=== PATIENT | male | born 1980 | race Caucasian/White ===

== ENCOUNTER 2021-02-01 20:04 | Emergency (ER) | payer MEDICAID ==
[~2021-02-01] VITALS: Ht 157.5 cm; Wt 59.9 kg
[2021-02-01 20:05] VITALS: BP 114/58
--- NOTE | 2021-02-01 20:05 | NUR ---
BIBA TAKEN TO BED #7
[2021-02-01] MEDS ORDERED: NACL 0.9% 1,000 ML IV ONE (20:30)
--- NOTE | 2021-02-01 20:30 | NUR ---
40 YO/M BIBA FROM [facility] W C/O CONSTIPATION X4 DAYS AND LOSS OF APPETITE PER EMS. PATIENT PRESENT GCS 11, SPONTANEOUS, OBEDIENT, NON-VERBAL, PATIENT BREATHING EVEN AND UNLABORED, LUNG SOUNDS CLEAR, BOWEL SOUNDS PRESENT, ABDOMEN SOFT NON-TENDER. CONNECTED TO MONITOR W 114/58 BP, 109 HR, 97 O2, 17 RR. PATIENT WEARING A DIAPER WITH X1 BOWEL MOVEMENT FILLING DIAPER W SOFT AND BROWN STOOL. PATIENT LAYING IN BED LOCKED IN LOWEST POSTION, X2 SIDERAILS UP W SEIZURE PRECAUTIONS IN PLACE FOR PATIENT SAFETY. WILL CONTINUE TO MONITOR. MEDHX- CEREBRAL PALSY, EPILEPSY NKA
--- NOTE | 2021-02-01 20:30 | NUR ---
PROVIDED DRESSING CHANGE TO PATIENT PRESSURE ULCER TO BACK. PHOTOS TAKEN AND ATTACHED TO CHART.
[2021-02-01 21:03] LABS: BASOPHILS # (AUTO) 0.1 K/uL (0.00-0.22); BASOPHILS % (AUTO) 1.1 % (0.0-2.0); HEMATOCRIT 40.5 % (36-52); HEMOGLOBIN 12.5 g/dL (12.0-18.0); LYMPHOCYTES # (AUTO) 2.2 K/uL (2.0-11.5); MEAN CORPUSCULAR HEMOGLOBIN 22 pg (27-31); MEAN CORPUSCULAR HGB CONC 31 g/dL (33-37); MEAN CORPUSCULAR VOLUME 70.2 fL (80-94); MONOCYTES # (AUTO) 0.8 K/uL (0.8-1.0); MONOCYTES % (AUTO) 11.3 % (1.7-9.3); NEUTROPHILS # (AUTO) 4.2 K/uL (1.8-7.7); NEUTROPHILS % (AUTO) 57.6 % (42.2-75.2); PLATELET COUNT (AUTO) 581 K/uL (140-450); RED BLOOD CELL COUNT(AUTO) 5.77 MIL/uL (4.20-6.10); RED CELL DISTRIBUTION WIDTH 16.5 % (11.6-13.7); WHITE BLOOD COUNT (AUTO) 7.3 K/uL (4.8-10.8)
[2021-02-01 21:24] LABS: ALBUMIN 3.6 g/dL (3.4-5.0); ANION GAP 22.1 (8-16); CARBON DIOXIDE 22.2 mmol/L (21-32); CREATININE 1.3 mg/dL (0.6-1.3); POTASSIUM 4.3 mmol/L (3.5-5.1); TOTAL BILIRUBIN 0.7 mg/dL (0.0-1.0)
--- NOTE | 2021-02-01 22:30 | NUR ---
PATIENT LAYING IN BED AWAKE, BED LOCKED IN LOWEST POSTION, X2 SIDERAILS UP W SEIZURE PRECAUTIONS. BREATHING EVEN AND UNLABORED. NAD NOTED, WILL CONTINUE TO MONITOR.
--- NOTE | 2021-02-01 22:35 | NUR ---
CONTACTED SERGE DIANA FROM [facility] FOR PATIENT DISCHARGE. PER SERGE, WILL CALL BACK W UPDATE ON TRANSPORTATION STATUS FOR PATIENT SUPERVISOR VENEER.
--- NOTE | 2021-02-01 22:41 | NUR ---
S/W VENANCIO FROM [facility] WHO STATED THEY ARE UNABLE TO PROVIDE TRANSPORTATION FOR PICKUP UNTIL TOMORROW MORNING.
--- NOTE | 2021-02-02 00:22 | NUR ---
PATIENT LAYING IN BED L LATERAL POSITION W EYES CLOSED, X2 SIDERAILS UP FOR PATIENT SAFETY W SEIZURE PRECAUTIONS IN PLACE. BREATHING EVEN AND UNLABORED, CONNECTED TO MONITOR W VSS. NAD NOTED, WILL CONTINUE TO MONITOR.
--- NOTE | 2021-02-02 02:05 | NUR ---
PATIENT LAYING IN BED W EYES CLOSED L LATERAL POSITION. BED LOCKED IN LOWEST POSTION, , X2 SIDERAILS UP W SEIZURE PRECAUTIONS. BREATHING EVEN AND UNLABORED. VSS. NAD NOTED. WILL CONTINUE TO MONITOR.
--- NOTE | 2021-02-02 04:00 | NUR ---
DOWNTIME. SEE PATIENT CHART FOR PATIENT STATUS AT THIS TIME.
[2021-02-02] MEDS ORDERED: levETIRAcetam 500 MG TAB PO ONE ×2 (05:00)
[2021-02-02] MEDS ORDERED: QUEtiapine FUMARATE 100 MG TAB PO SCH (05:00)
[2021-02-02] MEDS ORDERED: PHENobarbital 30 MG TAB PO ONE (05:00)
[2021-02-02] MEDS ORDERED: rOPINIRole 0.25 MG TAB PO SCH (05:00)
--- NOTE | 2021-02-02 06:00 | NUR ---
PATIENT LAYING IN BED IN L LATERAL POSITION, BLANKET ON. X2 SIDERAILS UP FOR PATIENT SAFETY W SEIZURE PRECAUTIONS. BREATHING EVEN AND UNLABORED. NAD NOTED. WILL CONTINUE TO MOTOR. VSS
[2021-02-02] MEDS ORDERED: levETIRAcetam 500 MG TAB ONE (06:50)
[2021-02-02] MEDS ORDERED: PHENobarbital 30 MG TAB ONE (06:51)
--- NOTE | 2021-02-02 07:00 | NUR ---
PATIENT REFUSED MORNING MEDS AT THIS TIME 0500 AM MEDS HANDED TO JAMAAL LARSON. PRODUCT SAFETY TECHNICAL ASSISTANT TO BRING REQUIP, AND SEROQUEL THESE MEDS NOT AVAILABLE IN ER.
[2021-02-02] MEDS ORDERED: CRUSHER, PILL MC ONE (07:03)
--- NOTE | 2021-02-02 07:15 | NUR ---
Pt report given to JAMAAL LARSON . Transfer of care at this time.
--- NOTE | 2021-02-02 07:15 | NUR ---
Patient assisted with linen and diaper change. New gown and blanket provided.
--- NOTE | 2021-02-02 07:15 | NUR ---
Report and continuation of care received from JAMAAL Woods.
--- NOTE | 2021-02-02 07:46 | NUR ---
1000mg Levetiracetam crushed and mixed with apple sauce. Patient refusing at this time after multiple attempts. GRECIAD made aware.
[2021-02-02 08:25] VITALS: BP 114/67
--- NOTE | 2021-02-02 08:40 | NUR ---
Sandy (caregiver) at bedside with pt wheelchair
--- NOTE | 2021-02-02 08:45 | NUR ---
Patient discharged with v/s stable. Written and verbal after care instructions given and explained. Patient verbalized understanding. Wheel Chair Assisted with by caregiver. All questions addressed prior to discharge. Advised to follow up with PMD.
[2021-02-03] MEDS ORDERED: ROPI0.5T6 PO ×2 (02:07→12:18)
[2021-02-03] MEDS ORDERED: FAMO-90 PO ×2 (02:07→12:18)
[2021-02-03] MEDS ORDERED: PHEN60TA PO ×2 (02:07→12:18)
[2021-02-03] MEDS ORDERED: ZINC220T4 PO ×2 (02:07→12:18)
[2021-02-03] MEDS ORDERED: ZONI100C22 PO ×3 (02:07→12:18)
[2021-02-03] MEDS ORDERED: MELA1TAB15 PO (02:07)
[2021-02-03] MEDS ORDERED: QUET100T PO ×2 (02:07→12:18)
[2021-02-03] MEDS ORDERED: ASCO-786 PO (02:07)
[2021-02-03] MEDS ORDERED: LEVE1000 PO ×2 (02:07→12:18)
[2021-02-03] MEDS ORDERED: DOCU-299 PO ×2 (02:07→12:18)
[2021-02-03] MEDS ORDERED: LORA10TA19 PO ×2 (02:07→12:18)
[2021-02-03] MEDS ORDERED: POLY17PD65 PO ×2 (02:07→12:18)
[2021-02-03] MEDS ORDERED: LAM200 PO ×2 (02:07→12:18)
[2021-02-03] MEDS ORDERED: CALC-751 PO ×2 (02:07→12:18)
[2021-02-03] MEDS ORDERED: PHEN100C14 PO ×2 (02:07→12:18)
== END 2021-02-02 08:45 | disposition home or self-care (01) ==
LOC: MED 20:04
DX: K59.00 Constipation, unspecified (principal); E86.0 Dehydration; Z48.00 Encounter for change or removal of nonsurgical wound dressing
CPT/HCPCS: 36415; 74018; 80053; 83690; 85025; 96360; 99285; J7030; Q0092

== ENCOUNTER 2021-02-02 21:56 | Inpatient (IN) | payer MEDICAID, SELFPAY ==
[~2021-02-02] VITALS: Ht 157.5 cm; Wt 70.8 kg
--- NOTE | 2021-02-02 21:56 | NUR ---
DEEDEE SUNG VIA GURNEY TO BED 02.
[2021-02-02 21:57] VITALS: BP 133/81
--- NOTE | 2021-02-02 22:00 | NUR ---
40 YO/M BIBA FROM [facility] W C/O SEIZURES, PER [facility] PATIENT HAS HX OF CONTROLLED SEIZURES W MEDICATIONS BUT HAS NOW HAD X2 EPISODE OF SEIZURES WHERE PATIENT STARES OFF X1 IN THE MORNING X1 1 HOURS AGO LASTING APPROX 30 SEC, +CONSTIPATION. PATIENT GCS 11 NONVERBAL, PATIENT CONTINUES TO CLOSE EYES UPON ASSESSMENT, UNABLE TO FULLY ASSESS PUPILS AT THIS TIME, S1S2 PRESENT, CAP REFIL <3SEC, TACHYCARDIC AT 106HR, LUNG SOUNDS CLEAR THROUGHOUT, BREATHING EVEN AND UNLABORED, BOWEL SOUNDS PRESENT, ABDOMEN NON-TENDER. WITNESSED X2 SOFT FULL BOWEL MOVEMENTS FILLING UP DIAPER W/IN PAST 24 HOURS. PATIENT LAYING IN BED R LATERAL POSITION, X2 SIDERAILS UP W SEIZURE PRECAUTIONS, HOB SLIGHTLY ELEVATED. NAD NOTED. CONNECTED TO MONITOR, WILL CONTINUE TO MONITOR. PMH: SEIZURE, EPILEPSY NKA
[2021-02-02] MEDS ORDERED: levETIRAcetam 1,000 MG in NACL 0.9% 100 ML IV ONE (22:35)
[2021-02-02] MEDS ORDERED: levETIRAcetam 100 MG/ML VIAL IV ONE (22:59)
[2021-02-02 23:07] LABS: BASOPHILS # (AUTO) 0.1 K/uL (0.00-0.22); BASOPHILS % (AUTO) 1.9 % (0.0-2.0); EOSINOPHILS % (AUTO) 0.4 % (0.0-4.0); HEMATOCRIT 36.9 % (36-52); HEMOGLOBIN 11.6 g/dL (12.0-18.0); LYMPHOCYTES # (AUTO) 1.7 K/uL (2.0-11.5); LYMPHOCYTES % (AUTO) 25.8 % (20.5-51.1); MEAN CORPUSCULAR HEMOGLOBIN 22 pg (27-31); MEAN CORPUSCULAR HGB CONC 31 g/dL (33-37); MEAN CORPUSCULAR VOLUME 68.8 fL (80-94); MONOCYTES # (AUTO) 0.5 K/uL (0.8-1.0); MONOCYTES % (AUTO) 8.5 % (1.7-9.3); NEUTROPHILS # (AUTO) 4.1 K/uL (1.8-7.7); NEUTROPHILS % (AUTO) 63.4 % (42.2-75.2); PLATELET COUNT (AUTO) 457 K/uL (140-450); RED BLOOD CELL COUNT(AUTO) 5.36 MIL/uL (4.20-6.10); RED CELL DISTRIBUTION WIDTH 16.4 % (11.6-13.7); WHITE BLOOD COUNT (AUTO) 6.4 K/uL (4.8-10.8)
[2021-02-02 23:23] LABS: ALBUMIN 3.4 g/dL (3.4-5.0); ANION GAP 18.5 (8-16); CARBON DIOXIDE 22.5 mmol/L (21-32); CREATININE 1.1 mg/dL (0.6-1.3); TOTAL BILIRUBIN 0.5 mg/dL (0.0-1.0)
[2021-02-02] MEDS ORDERED: NACL 0.9% 1,000 ML IV ONE (23:45)
[2021-02-03] MEDS ORDERED: MEROPENEM 1,000 MG in NACL 0.9% 100 ML IV ONE ×2
[2021-02-03] MEDS ORDERED: VANCOMYCIN 1,000 MG in DEXTROSE 5% 250 ML IV ONE ×2
--- NOTE | 2021-02-03 | NUR ---
PATIENT LAYING IN BED R LATERAL POSITION W EYES CLOSED, HOB SLIGHTLY ELEVATED, BED LOCKED IN LOWEST POSITION. X2 SIDERAILS UP FOR PATIENT SAFETY W SEIZURE PRECAUTIONS. BREATHING EVEN AND ULABORED. CONNECTED TO MONITOR W VSS. NAD NOTED, WILL CONTINUE TO MONITOR.
[2021-02-03] MEDS ORDERED: MEROPENEM 1,000 MG VIAL IV ONE (00:14)
[2021-02-03] MEDS ORDERED: ACETAMINOPHEN 325 MG TAB PO PRN (00:15)
[2021-02-03] MEDS ORDERED: POTASSIUM CHLORIDE 10 MEQ TABER PO PRN (00:15)
[2021-02-03] MEDS ORDERED: NACL 0.9% 1,000 ML IV SCH (00:15)
[2021-02-03] MEDS ORDERED: DOCUSATE SODIUM 100 MG GELCAP PO PRN (00:15)
[2021-02-03] MEDS ORDERED: MORPHINE SULFATE 2 MG/ML SYR IVP PRN (00:15)
[2021-02-03] MEDS ORDERED: HYDROcodone/APAP 5/325 MG 1 TAB TAB PO PRN (00:15)
[2021-02-03] MEDS ORDERED: SODIUM PHOS / POTASSIUM PHOS 1 PKT PDR PO PRN (00:15)
[2021-02-03] MEDS ORDERED: MAGNESIUM OXIDE 400 MG TAB PO PRN (00:15)
[2021-02-03] MEDS ORDERED: ONDANSETRON 4 MG/2 ML VIAL IM/IVP PRN (00:15)
[2021-02-03] MEDS ORDERED: VANCOMYCIN 1,000 MG VIAL ONE (00:56)
[2021-02-03 01:18] LABS: MAGNESIUM 1.8 mg/dL (1.8-2.4); PHOSPHORUS 2.8 mg/dL (2.5-4.9)
--- NOTE | 2021-02-03 02:00 | NUR ---
PATIENT LAYING IN BED SUPINE POSITION W EYES CLOSED, HOB SLIGHTLY ELEVATED, BED LOCKED IN LOWEST POSITION. X2 SIDERAILS UP FOR PATIENT SAFETY W SEIZURE PRECAUTIONS. BREATHING EVEN AND ULABORED. CONNECTED TO MONITOR W VSS. NAD NOTED, WILL CONTINUE TO MONITOR. VANCOCIN RUNNING AT 165ML/HR.
[2021-02-03] MEDS ORDERED: LORA10TA19 PO ×2 (02:07→12:18)
[2021-02-03] MEDS ORDERED: FAMO-90 PO ×2 (02:07→12:18)
[2021-02-03] MEDS ORDERED: ZINC220T4 PO ×2 (02:07→12:18)
[2021-02-03] MEDS ORDERED: PHEN60TA PO ×2 (02:07→12:18)
[2021-02-03] MEDS ORDERED: LAM200 PO ×2 (02:07→12:18)
[2021-02-03] MEDS ORDERED: LEVE1000 PO ×2 (02:07→12:18)
[2021-02-03] MEDS ORDERED: CALC-751 PO ×2 (02:07→12:18)
[2021-02-03] MEDS ORDERED: PHEN100C14 PO ×2 (02:07→12:18)
[2021-02-03] MEDS ORDERED: DOCU-299 PO ×2 (02:07→12:18)
[2021-02-03] MEDS ORDERED: ROPI0.5T6 PO ×2 (02:07→12:18)
[2021-02-03] MEDS ORDERED: ASCO-786 PO (02:07)
[2021-02-03] MEDS ORDERED: MELA1TAB15 PO (02:07)
[2021-02-03] MEDS ORDERED: ZONI100C22 PO ×3 (02:07→12:18)
[2021-02-03] MEDS ORDERED: QUET100T PO ×2 (02:07→12:18)
[2021-02-03] MEDS ORDERED: POLY17PD65 PO ×2 (02:07→12:18)
--- NOTE | 2021-02-03 03:10 | NUR ---
100 CC OF HELEN COLORED URINE SAMPLE OBTAINED VIA STRAIGHT CATH.
[2021-02-03 03:28] LABS: APPEARANCE,URINE SL CLOUDY (CLEAR); BILIRUBIN,URINE 2+ (NEGATIVE); BLOOD, URINE TRACE-I (NEGATIVE); COLOR,URINE DARK YELLOW (YELLOW); LEUKOCYTE ESTERASE ,URINE NEGATIVE (NEGATIVE); NITRITE, URINE NEGATIVE (NEGATIVE); UGLUCOSE TRACE (NEGATIVE)
[2021-02-03 03:36] LABS: RBC,URINE 0-5 /HPF (0-5)
--- NOTE | 2021-02-03 04:10 | NUR ---
PROVIDED DRESSING CHANGE TO PATIENT PRESSURE ULCER W NON-ADHERENT DRESSING. WOUND PHOTO OBTAINED AND ATTATCHED TO CHART.
--- NOTE | 2021-02-03 04:15 | NUR ---
PROVIDED DIAPER CHANGE TO PATIENT AT THIS TIME. RE-POSITIONED, PATIENT LAYING SUPINE IN BED, BREATHING EVEN AND UNLABORED. CONNECTED TO MONITOR W VSS. 0.9NS FLUIDS RUNNING AT 80ML/HR.
--- NOTE | 2021-02-03 04:30 | NUR ---
HANDOFF RECIEVED FROM JAMAAL RIVERA. ASSUMED CARE AT THIS TIME. PT SEEN WITH EYES CLOSED, VISIBLE CHEST RISE AND FALL NOTED. ALL NEEDS MET AT THIS TIME. WILL CONTINUE TO MONITOR.
--- NOTE | 2021-02-03 06:07 | NUR ---
PT REPOSITIONED FOR COMFORT. VSS. ALL NEEDS MET AT THIS TIME. WILL CONTINUE TO MONITOR.
--- NOTE | 2021-02-03 07:11 | NUR ---
RECEIVED REPORT FROM JAMAAL IRBY. TRANSFER OF CARE AT THIS TIME.
--- NOTE | 2021-02-03 07:55 | NUR ---
PT SLEING SUPINE, VISIBLE EQUAL RISE AND FALL OF CHEST, PT ON TRUCK LEASING MANAGER, VSS, WILL CONTINUE TO MONITOR.
--- NOTE | 2021-02-03 08:42 | NUR ---
GAVE REPORT TO JAMAAL AYALA . TRANSFER OF CARE AT THIS TIME.
--- NOTE | 2021-02-03 09:03 | NUR ---
Patient will be admitted to care of DR. TRAVIS. Admited to TELE. Will go to room 124A. Belongings list completed. Report to JAMAAL AYALA.
--- NOTE | 2021-02-03 09:10 | NUR ---
PATIENT HAS BEEN SCREENED AND CATEGORIZED MODERATE NUTRITION RISK. PATIENT WILL BE SEEN WITHIN 3-5 DAYS OF ADMISSION. 02/05/21 02/07/[address]
[2021-02-03 10:00] VITALS: BP 110/49
--- NOTE | 2021-02-03 10:00 | NUR ---
NURSE REPORT FROM ER NURSE REPORT OBTAINED FROM ER NURSE JEANNETTE [id number] AND THIS NURSE ASSUMED CARE OF PATIENT AT 0945. NEEDED 3 PERSONS ASSIST TO MOVE PATIENT FROM GURNEY TO BED. NO SXS OF SEIZURES. VS 96.2-86-18, BP 110/49, O2 SAT 96%. TELE MONITOR SR 90.
[2021-02-03 11:07] LABS: CREATININE 1.1 mg/dL (0.6-1.3); POTASSIUM 4.2 mmol/L (3.5-5.1)
[2021-02-03 11:11] LABS: ANION GAP 16.5 (8-16); CARBON DIOXIDE 24.7 mmol/L (21-32)
[2021-02-03 12:00] VITALS: BP 130/72
[2021-02-03] MEDS: PIPERACILLIN/TAZOBACTAM 3.375 GM in DEXTROSE 5% 50 ML IV SCH ×3 (12:00→23:23)
--- NOTE | 2021-02-03 12:00 | NUR ---
NURSE CARE VSS. TELE WITH SR 79. NO C/O PAIN OR DISCOMFORT. PATIENT REFUSED TO EAT LUNCH. SIDE RAILS ELEVATED X 3. BED ALARM ON.
[2021-02-03] MEDS ORDERED: MELATONIN 3 MG TAB PO PRN (12:10)
--- NOTE | 2021-02-03 13:30 | NUR ---
REASON FOR EVALUATION: MEDIAL BACK WOUND WOUND ASSESSMENT COMPLETED ON THIS 40 Y/O MALE ADMITTED TO [facility] UNIT FOR BILATERAL PNEUMONIA, DEHYDRATION. PATIENT IS FROM A SNF. PAST MEDICAL HISTORY INCLUDES SEIZURES, GERD, CONSTIPATION, INTELLECTUAL DISABILITY. ALL ABOVE INFORMATION WAS OBTAINED FROM THE ADMISSION H&P. LABS ARE WBC 6.4, H/H 11.6/36.9, GLUCOSE 77, ALBUMIN 3.4. PATIENT IS AAOX1, NON-VERBAL. SKIN IS WARM TO TOUCH. HAS GENERALIZED BILATERAL LOWER EXTREMITIES WEAKNESS. ORAL MUCOSAL MEMBRANES DRY. REQUIRES ASSISTANCE WITH TURNING. PLAN OF CARE AND PRESSURE PREVENTATIVE MEASURES DISCUSSED WITH PATIENT AND PRIMARY RN. PATIENT UNABLE TO COMPREHEND. PATIENT ADMITTED WITH MEDIAL BACK WOUND, APPEARS TO BE SURGICAL IN NATURE. COMORBIDITIES RELATED TO FURTHER SKIN BREAKDOWN SUCH DECREASED FUNCTIONAL ABILITY, AND S/S OF DEHYDRATION. INTEGUMENTARY: - MEDIAL BACK WOUND APPEARS TO BE SURGICAL. WOUND BED PINK, DRY, GRANULATING. WOUND BORDERS CLEARLY DEFINED EDGES, TEAR SHAPED. NO S/S OF INFECTION, NO DRAINAGE. PERIWOUND INTACT, PINK. RECOMMENDATIONS: - MEDIAL BACK WOUND APPEARS TO BE SURGICAL - CLEANSE WITH NS, PAT DRY, APPLY HYDROGEL, AND COVER WITH DRY DRESSING DAILY AND PRN IF SOILED. - TURN AND REPOSITION PATIENT Q2H TO LEFT AND RIGHT SIDE TO OFFLOAD SACRALCOCCYX. - ASSESS AND MONITOR SKIN CONDITION DURING POSITION CHANGE.
[2021-02-03] MEDS: NACL 0.45% 1,000 ML IV SCH (14:15)
[2021-02-03 14:32] LABS: PHENYTOIN (DILANTIN) 16.7 ug/ml (10.0-20.0)
[2021-02-03] MEDS: PANTOPRAZOLE 40 MG INJ VIAL IVP SCH (14:34)
[2021-02-03 16:00] VITALS: BP 128/81
--- NOTE | 2021-02-03 16:00 | NUR ---
NURSE CARE OTHER RN CAMPBELL WAS WOUND CARE NURSE AND TOOK OLD DRSG O AND TOOK PICTURE, AND DRSG APPLIED ORDERED. VSS. AFEB.
--- NOTE | 2021-02-03 19:15 | NUR ---
NURSE NOTES REPORT GIVEN TO NIGHT NURSE MIXON. SBAR GIVEN AND ALL QUESTIONS ASKED.
--- NOTE | 2021-02-03 19:16 | NUR ---
RECEIVED PATIENT FROM AM NURSE FOR CONTINUITY OF CARE. PATIENT IS AWAKE, EYE OPEN SPONTANEOUS, NON VERBAL. RESPIRATORY EVEN AND UNLABORED, ON ROOM AIR. NO SIGN OF DISTRESS NOTED. SKIN WARM, DRY, NON DIAPHORETIC. MEDICAL BACK SURGICAL WOUND NOTED. DRESSING INTACT, DRY AND CLEAN. IV ON RIGHT AC 22G, WAS REMOVED BY PATIENT, CATHETER INTACT, NO ACTIVE BLEEDING NOTED. WILL INSERT NEW IV. PATIENT HAS NO SIGN OF DISTRESS. PLAN OF CARE DISCUSSED. PRECAUTION IN PLACE. CALL LIGHT WITHIN REACH. WILL CONTINUE TO MONITOR.
[2021-02-03 20:00] VITALS: BP 107/66
[2021-02-03] MEDS ORDERED: levETIRAcetam 100 MG/ML ORASYR PO SCH (21:00)
[2021-02-03] MEDS ORDERED: PHENYTOIN 100 MG CAPER PO SCH (21:00)
[2021-02-03] MEDS ORDERED: PHENobarbital 30 MG TAB PO SCH (21:00)
--- NOTE | 2021-02-03 21:25 | NUR ---
TEXT DR TRAVIS REGARDING PATIENT REFUSED PO MEDICATIONS. DR HERNANDEZ AND CONVERTED TO IV. WILL FOLLOW ORDER.
[2021-02-03] MEDS ORDERED: PHENobarbital 65 MG/ML VIAL IV SCH (21:35)
--- NOTE | 2021-02-03 22:00 | NUR ---
INSERT NEW IV ON RIGHT FA 22G, PATIENT TOLERATED WELL. NO SIGN OF DISTRESS NOTED. PRECAUTION IN PLACE CALL LIGHT WITHIN REACH. WILL CONTINUE TO MONITOR.
[2021-02-03] MEDS: POLYETHYLENE GLYCOL 17 GM/PKT PO SCH (22:17)
[2021-02-03] MEDS: rOPINIRole 0.25 MG TAB PO SCH (22:17)
[2021-02-03] MEDS: QUEtiapine FUMARATE 100 MG TAB PO SCH (22:18)
[2021-02-03] MEDS ORDERED: levETIRAcetam 100 MG/ML VIAL IV ONE (22:27)
[2021-02-03] MEDS: PHENYTOIN 100 MG/2 ML VIAL IVP SCH (22:29)
[2021-02-03] MEDS: levETIRAcetam 1,000 MG in NACL 0.9% 100 ML IV SCH (22:30)
[2021-02-03] MEDS ORDERED: PHENobarbital 130 MG/ML VIAL ONE (22:50)
[2021-02-04] VITALS: BP 112/76
--- NOTE | 2021-02-04 00:15 | NUR ---
PATIENT TRANSFER TO CT FOR HEAD CT.
--- NOTE | 2021-02-04 00:45 | NUR ---
PATIENT RETURN TO ROOM WITHOUT ANY DISTRESS. PRECAUTION IN PLACE. CALL LIGHT WITHIN REACH. WILL CONTINUE TO MONITOR.
[2021-02-04] MEDS: SKINTEGRITY HYDROGEL TP SCH ×2 (01:00→13:20)
--- NOTE | 2021-02-04 02:00 | NUR ---
PATIENT IS SLEEPING, CHEST RISE AND FALL NOTED. NO SIGN OF DISTRESS NOTED. PRECAUTION IN PLACE. CALL LIGHT WITHIN REACH. WILL CONTINUE TO MONITOR.
[2021-02-04 04:00] VITALS: BP 135/84
--- NOTE | 2021-02-04 04:00 | NUR ---
PATIENT IS SLEEPING. CHEST RISE AND FALL NOTED. NO SIGN OF DISTRESS NOTED. PRECAUTION IN PLACE. CALL LIGHT WITHIN REACH. WILL CONTINUE TO MONITOR.
[2021-02-04] MEDS: NACL 0.45% 1,000 ML IV SCH ×2 (04:18→18:48)
--- NOTE | 2021-02-04 05:30 | NUR ---
CLEAN AND REPOSITION PATIENT. PATIENT TOLERATED WELL. NO SIGN OF DISTRESS NOTED. CALL LIGHT WITHIN REACH. WILL CONTINUE TO MONITOR.
[2021-02-04] MEDS: PIPERACILLIN/TAZOBACTAM 3.375 GM in DEXTROSE 5% 50 ML IV SCH ×4 (06:14→23:54)
[2021-02-04 06:36] LABS: ANION GAP 14.7 (8-16); CARBON DIOXIDE 24.1 mmol/L (21-32); CREATININE 0.9 mg/dL (0.6-1.3); POTASSIUM 3.8 mmol/L (3.5-5.1)
[2021-02-04 06:39] LABS: BASOPHILS # (AUTO) 0.1 K/uL (0.00-0.22); BASOPHILS % (AUTO) 1.9 % (0.0-2.0); HEMATOCRIT 36.5 % (36-52); HEMOGLOBIN 11.2 g/dL (12.0-18.0); LYMPHOCYTES # (AUTO) 1.8 K/uL (2.0-11.5); LYMPHOCYTES % (AUTO) 30.8 % (20.5-51.1); MEAN CORPUSCULAR HEMOGLOBIN 22 pg (27-31); MEAN CORPUSCULAR HGB CONC 31 g/dL (33-37); MONOCYTES # (AUTO) 0.5 K/uL (0.8-1.0); MONOCYTES % (AUTO) 9.3 % (1.7-9.3); NEUTROPHILS # (AUTO) 3.4 K/uL (1.8-7.7); PLATELET COUNT (AUTO) 393 K/uL (140-450); RED BLOOD CELL COUNT(AUTO) 5.06 MIL/uL (4.20-6.10); RED CELL DISTRIBUTION WIDTH 17.1 % (11.6-13.7); WHITE BLOOD COUNT (AUTO) 5.8 K/uL (4.8-10.8)
--- NOTE | 2021-02-04 07:25 | NUR ---
ENDORSED PATIENT TO AM NURSE FOR CONTINUITY OF CARE. PATIENT IS STABLE.
--- NOTE | 2021-02-04 07:27 | NUR ---
RECEIVED REPORT FROM MARINE ENGINEER RN FOR CONTINUITY OF CARE. PATIENT IS RESTING IN BED. RESPIRATIONS ARE EVEN AND UNLABORED. NO S/S OF DISTRESS. ALL SAFETY PRECAUTIONS IN PLACE.
[2021-02-04 08:00] VITALS: BP 141/119
--- NOTE | 2021-02-04 08:21 | NUR ---
NURSE REPORT REPORT OBTAINED FROM NIGHT NURSE AT 0715 AND THIS NURSE ASSUMED CARE OF PATIENT. VSS. AFEB. IV 1/2 NS AT 80 ML/HR INTO R FA. NO REDNESS OR SWELLING. SIDE RAILS ELEVATED AND PATIENT NEAR NURSE STATION. BED ALARM ON. TELE MONITOR WITH ST 101.
[2021-02-04] MEDS: DOCUSATE SODIUM 250 MG GELCAP PO SCH (09:00)
[2021-02-04] MEDS: levETIRAcetam 1,000 MG in NACL 0.9% 100 ML IV SCH (09:00)
[2021-02-04] MEDS: PHENYTOIN 100 MG/2 ML VIAL IVP SCH ×3 (09:00→17:00)
[2021-02-04] MEDS: rOPINIRole 0.25 MG TAB PO SCH ×2 (09:00→21:00)
[2021-02-04] MEDS: LORATADINE 10 MG TAB PO SCH (09:00)
[2021-02-04] MEDS: QUEtiapine FUMARATE 100 MG TAB PO SCH ×2 (09:00→21:00)
[2021-02-04] MEDS: ZINC SULF 220 MG CAP PO SCH (09:00)
[2021-02-04] MEDS ORDERED: FAMOTIDINE 20 MG TAB PO SCH (09:00)
[2021-02-04] MEDS: POLYETHYLENE GLYCOL 17 GM/PKT PO SCH ×2 (09:00→21:00)
[2021-02-04] MEDS: PANTOPRAZOLE 40 MG INJ VIAL IVP SCH (09:00)
[2021-02-04] MEDS: VITAMIN D 400 IU TAB PO SCH (09:00)
[2021-02-04] MEDS: ASCORBIC ACID 500 MG TAB PO SCH (09:00)
--- NOTE | 2021-02-04 10:00 | NUR ---
NURSE CARE PATIENT NOT ABLE TO TAKE MED BY MOUTH. WILL REPORT TO MD THAT PATIENT CANNOT EAT, DRINK OR TAKE MED. CAREGIVER HAD ASKED FOR FEEDING TUBE. MEDS ARE IV OR IVPB THAT CAN BE GIVEN.
--- NOTE | 2021-02-04 10:13 | NUR ---
FNS REFERRAL RECEIVED NOT APPROPRIATE, 1 OUT 2 TRIGGERS APPLIED.
[2021-02-04 12:00] VITALS: BP 128/70
--- NOTE | 2021-02-04 12:25 | NUR ---
NURSE CARE VSS. AFEB. IV DILANTIN GIVEN. NO SXS OF SEIZURE. IV SITE COVERED WITH JAC WRAP, SINCE PATIENT WILL PULL IV OUT.
--- NOTE | 2021-02-04 12:27 | NUR ---
JAMAAL AYALA REPORTED THAT PT WAS UNABLE TO TAKE MEDS. RECOMMENDED SWALLOW EVALUATION AND NPO TO DR. TRAVIS.
--- NOTE | 2021-02-04 15:52 | NUR ---
02/04/21 RD INITIAL ASSESSMENT COMPLETED PLEASE REFER TO NUTRITION ASSESSMENT UNDER CARE ACTIVITY FOR ESTIMATED NUTRITIONAL NEEDS. 1. RECOMMEND NPO 2. PENDING SWALLOW EVALUATION RECOMMENDATIONS 3. RECOMMEND PEG PLACEMENT FOR INADEQUATE PO INTAKE. CONSIDER JEVITY 1.2 @ 50 ML/HR WITH FREE WATER FLUSH OF [address] TO FOLLOW-UP 2-3 DAYS, HIGH RISK OLIVIA HILL, DIANA
[2021-02-04 16:00] VITALS: BP 105/75
--- NOTE | 2021-02-04 16:00 | NUR ---
NURSE CARE VSS. AFEB. ON IVPB ZOSYN AND IVPB KEPPRA AND IVP DILANTIN. NO SXS OF SEIZURES.
--- NOTE | 2021-02-04 19:20 | NUR ---
NURSE REPORT REPORT GIVEN TO NIGHT NURSE MIXON TO ASSUME CARE OF PATIENT.
--- NOTE | 2021-02-04 19:21 | NUR ---
RECEIVED PATIENT FROM AM NURSE FOR CONTINUITY OF CARE. PATIENT IS AWAKE, EYE OPEN SPONTANEOUS, NON VERBAL. RESPIRATORY EVEN AND UNLABORED, ON ROOM AIR, NO SIGN OF DISTRESS NOTED. SKIN WARM, DRY, NON DIAPHORETIC. IV ON RIGHT FA 22G, INTACT AND PATENT, IS INFUSING FLUID ORDER. MEDICAL BACK WOUND NOTED WITH DRESSING INTACT, CLEAN AND DRY. PLAN OF CARE DISCUSSED. PRECAUTION IN PLACE. CALL LIGHT WITHIN REACH. WILL CONTINUE TO MONITOR.
[2021-02-04 20:00] VITALS: BP 108/77
--- NOTE | 2021-02-04 20:02 | NUR ---
TEXT DR TRAVIS REGARDING PATIENT RD INITIAL ASSESSMENT THAT RECOMMENDED NPO AND PENDING SWALLOW EVAL. PER DR TRAVIS, CHANGE DIET STATUS TO NPO. WILL FOLLOW ORDER.
[2021-02-04] MEDS: levETIRAcetam 2,000 MG in NACL 0.9% 100 ML IV SCH (21:47)
[2021-02-04] MEDS: PHENobarbital 130 MG/ML VIAL IV SCH (21:47)
--- NOTE | 2021-02-04 21:47 | NUR ---
SCHEDULE MEDICATIONS GIVEN WITH EDUCATION. PATIENT TOLERATED WELL. NO SIGN OF DISTRESS NOTED. PRECAUTION IN PLACE. CALL LIGHT WITHIN REACH. WILL CONTINUE TO MONITOR.
[2021-02-05] VITALS: BP 123/71
--- NOTE | 2021-02-05 | NUR ---
PATIENT IS SLEEPING, CHEST RISE AND FALL NOTED, NO SIGN OF RESPIRATORY DISTRESS. PRECAUTION IN PLACE. CALL LIGHT WITHIN REACH. WILL CONTINUE TO MONITOR.
[2021-02-05] MEDS: NACL 0.45% 1,000 ML IV SCH ×3 (00:32→21:42)
[2021-02-05] MEDS: SKINTEGRITY HYDROGEL TP SCH ×2 (01:51→13:52)
--- NOTE | 2021-02-05 02:00 | NUR ---
PATIENT IS SLEEPING, CHEST RISE AND FALL NOTED, NO SIGN OF RESPIRATORY DISTRESS. PRECAUTION IN PLACE. CALL LIGHT WITHIN REACH. WILL CONTINUE TO MONITOR.
[2021-02-05 04:00] VITALS: BP 119/67
--- NOTE | 2021-02-05 04:00 | NUR ---
CLEAN AND CHANGE PATIENT SHEET. PATIENT TOLERATED WELL. NO SIGN OF DISTRESS NOTED. PRECAUTION IN PLACE. CALL LIGHT WITHIN REACH. WILL CONTINUE TO MONITOR.
[2021-02-05] MEDS: PIPERACILLIN/TAZOBACTAM 3.375 GM in DEXTROSE 5% 50 ML IV SCH ×3 (05:23→18:41)
[2021-02-05 06:24] LABS: BASOPHILS # (AUTO) 0.1 K/uL (0.00-0.22); BASOPHILS % (AUTO) 1.9 % (0.0-2.0); EOSINOPHILS % (AUTO) 0.1 % (0.0-4.0); HEMATOCRIT 33.9 % (36-52); HEMOGLOBIN 10.4 g/dL (12.0-18.0); LYMPHOCYTES # (AUTO) 2.1 K/uL (2.0-11.5); LYMPHOCYTES % (AUTO) 33.4 % (20.5-51.1); MEAN CORPUSCULAR HEMOGLOBIN 22 pg (27-31); MEAN CORPUSCULAR HGB CONC 31 g/dL (33-37); MEAN CORPUSCULAR VOLUME 70.4 fL (80-94); MONOCYTES # (AUTO) 0.7 K/uL (0.8-1.0); MONOCYTES % (AUTO) 10.7 % (1.7-9.3); NEUTROPHILS # (AUTO) 3.3 K/uL (1.8-7.7); NEUTROPHILS % (AUTO) 53.9 % (42.2-75.2); PLATELET COUNT (AUTO) 326 K/uL (140-450); RED BLOOD CELL COUNT(AUTO) 4.81 MIL/uL (4.20-6.10); WHITE BLOOD COUNT (AUTO) 6.1 K/uL (4.8-10.8)
[2021-02-05 07:08] LABS: ANION GAP 14.1 (8-16); CARBON DIOXIDE 24.6 mmol/L (21-32); CREATININE 0.8 mg/dL (0.6-1.3); POTASSIUM 3.7 mmol/L (3.5-5.1)
--- NOTE | 2021-02-05 07:20 | NUR ---
ENDORSED PATIENT TO AM NURSE FOR CONTINUITY OF CARE. PATIENT IS STABLE.
--- NOTE | 2021-02-05 07:22 | NUR ---
RECEIVED PATIENT AND REPORT FROM SERVICE OBSERVER CHIEF RN FOR CONTINUITY OF CARE. PATIENT IS RESTING IN BED. NO S/S OF DISTRESS. ALL SAFETY PRECAUTIONS IN PLACE.
[2021-02-05 08:00] VITALS: BP 111/70
[2021-02-05] MEDS: DOCUSATE SODIUM 250 MG GELCAP PO SCH (08:44)
[2021-02-05] MEDS: LORATADINE 10 MG TAB PO SCH (08:44)
[2021-02-05] MEDS: VITAMIN D 400 IU TAB PO SCH (08:44)
[2021-02-05] MEDS: rOPINIRole 0.25 MG TAB PO SCH ×2 (08:45→21:00)
[2021-02-05] MEDS: POLYETHYLENE GLYCOL 17 GM/PKT PO SCH ×2 (08:45→21:00)
[2021-02-05] MEDS: ASCORBIC ACID 500 MG TAB PO SCH (08:46)
[2021-02-05] MEDS: QUEtiapine FUMARATE 100 MG TAB PO SCH ×2 (08:46→21:00)
--- NOTE | 2021-02-05 08:46 | NUR ---
DC PLANNING: PATIENT CAME FROM [facility] IN [place], ADDRESS [address] [id number], PHONE [phone]. PATIENT HISTORY GIVEN BY LIZZ GOLDSTEIN AT THE FACILITY. PATIENT IS SEVERELY DEVELOPMENTALLY DELAYED, HAS BEEN RESIDING AT AN [facility] IN [place] BUT WAS TRANSFERRED S/P TUMOR REMOVAL TO THE LOWER BACK. PLAN IS FOR THE PATIENT TO HAVE A GRAFT PLACED TO THE SURGICAL SITE AT SOME POINT. PATIENT NORMALLY IS ABLE TO FEED HIMSELF WITH SET UP BUT HAS BEEN REFUSING LIQUIDS AND IS NOW BEING FED, LIZZ THINKS IT'S RELATED TO HIS NEW ENVIRONMENT AND RECENT SURGERY. PATIENT HAS BEEN BED AND WC BOUND SINCE 2019 BECAUSE OF AN ANKLE FRACTURE, THE PATIENT HASN'T BEEN CLEARED BY ORTHO AND IS NWB BUT HASN'T SEEN ORTHO SINCE OCTOBER OF 2019. THE PATIENT IS AFFILIATED WITH [facility], FRANCISCO HERNANDEZ IS THE CONTACT, PHONE [phone]. ORDER RECEIVED FROM DR CLEMENTS FOR NEUROLOGY F/U FOR OVERSIGHT OF HIS VNS, CM WILL ENDORSE THIS TO [facility]. LABS AND CLINICALS FAXED TO [facility] AT THEIR REQUEST, . DC PLAN IS FOR THE PATIENT TO RETURN TO [facility], CM WILL FOLLOW FOR NEEDS. Addendum: 02/05/21 at 1610 by Alesha Juarez CM DC PLANNING: ATTENDING MD RECEIVED A TEXT FROM MATT ASKING THAT THE PATIENT HAVE PEG PLACEMENT. UNCLEAR WHO MATT IS, WAYNE CALLED [facility] MATT IS THE SPEECH LANG PATH THERAPIST FOR THE PATIENTS HOUSE, [address] AT [facility]. WAYNE ATTEMPTED TO REACH THE FLEXIBLE MACHINING SYSTEM MACHINIST, LIZZ GOLDSTEIN, MULTIPLE TIMES TO DISCUSS TEXT, UNABLE TO REACH. WAYNE THEN CALLED THE RN FOR DIANNE OHARA, CELL NUMBER [phone]. WAYNE ENDORSED THAT MATT REACHED OUT TO THE ATTENDING MD REGARDING A PEG AND ASKED FOR THE RATIONALE BEHIND THE REQUEST. DIANNE IS UNAWARE OF THE REQUEST AND STATES SHE WILL DISCUSS IT WITH THE FLEXIBLE MACHINING SYSTEM MACHINIST LIZZ. SHE ALSO STATES THAT AUTHORIZATION THROUGH [facility] IS NOT REQUIRED FOR THE PATIENT TO RETURN TO [facility]. WAYNE ASKED IF THEY WOULD ARRANGE FOR TRANSPORT BACK TO [facility] AND DIANNE INITIALLY SAID THAT THE HOSPITAL WAS RESPONSIBLE. WAYNE POINTED OUT THAT THE PATIENT IS M/JAJA WITHOUT TRANSPORT BENEFITS, DIANNE STATES TO CALL WHEN HE IS READY FOR DC AND THEY WILL ARRANGE IT. WAYNE WILL FOLLOW FOR NEEDS. Addendum: 02/12/21 at 1319 by Alesha Juarez CM DC PLANNING: WAYNE RECEIVED A CALL FROM ZAHRA GRULLON FROM THE [facility] ([phone]) STATING THAT SHE WILL NEED TO FIND A PLACE FOR THE PATIENT TO DC HIS ORIGINATING FACILITY [facility] CANNOT MANAGE A PEG. ZAHRA STATES THAT SHE WILL NOT BE ABLE TO WORK ON THIS UNTIL MONDAY, CLINICALS FAXED TO HER AT [phone]. DR. RAMOS NOTIFIED OF DELAY IN DISCHARGE, WAYNE WILL FOLLOW FOR NEEDS. Addendum: 02/15/21 at 1432 by Alesha Juarez DC PLANNING: WAYNE SPOKE WITH ZAHAR GRULLON FROM [facility], STATES THEY ARE MEETING TODAY AT 1530 TO DISCUSS THIS PATIENT AND WILL LET CM KNOW WHICH FACILITIES TO REFER THE PATIENT TO. CM WILL FOLLOW FOR NEEDS. Addendum: 02/16/21 at 1234 by Alesha Juarez DC PLANNING: WAYNE SPOKE WITH ZAHRA GRULLON AT THE [facility], STATES THAT SHE WILL SPEAK WITH THE PATIENTS FAMILY ABOUT OPTIONS FOR AN [facility]. REVIEWED CLINICALS AND WOUND CARE, ALSO SPOKE WITH DR. GAINES REGARDING CLINICAL STABILITY RELATED TO PATIENTS HYPOKALEMIA, PATIENT IS RECEIVING K+ ELIXIR TODAY, WILL RECHECK K+ LATER TODAY. CM WILL FOLLOW FOR NEEDS. Addendum: 02/17/21 at 1211 by Alesha Juarez CM DC PLANNING: WAYNE SPOKE WITH LIZZ GOLDSTEIN AT [facility], SHE STATES THAT THE PATIENTS PARENTS HAVE AGREED TO HAVE HIM RETURN TO THE [place] FACILITY, [facility]. PHONE FOR FACILITY IS [phone], ADDRESS [address]. ALSO SPOKE WITH DR. GAINES, SHE WILL REVIEW THE PATIENT AND PLACE A DC ORDER IF APPROPRIATE. WAYNE ASKED LIZZ TO ARRANGE TRANSPORT FOR BETWEEN 3 AND 4 THIS AFTERNOON, CM ALSO NOTIFIED THE PATIENTS JAMAAL DOMINGUEZ OF [facility] DC. CM WILL FOLLOW FOR NEEDS. Addendum: 02/17/21 at 1601 by Alesha Juarez CM DC PLANNING: MATT FROM [facility] HERE TO DAY HAUL OR FARM CHARTER BUS DRIVER PATIENT. WAYNE WILL FOLLOW NEEDED.
[2021-02-05] MEDS: ZINC SULF 220 MG CAP PO SCH (08:47)
[2021-02-05] MEDS: PANTOPRAZOLE 40 MG INJ VIAL IVP SCH (08:50)
[2021-02-05] MEDS: PHENobarbital 130 MG/ML VIAL IV SCH ×2 (08:51→21:31)
[2021-02-05] MEDS: PHENYTOIN 100 MG/2 ML VIAL IVP SCH ×3 (08:51→17:46)
--- NOTE | 2021-02-05 08:51 | NUR ---
ADMINISTERED SCHEDULED MEDICATIONS. PATIENT IS STABLE. NO S/S OF DISTRESS. ALL SAFETY PRECAUTIONS IN PLACE.
[2021-02-05] MEDS: levETIRAcetam 2,000 MG in NACL 0.9% 100 ML IV SCH ×2 (08:53→21:50)
--- NOTE | 2021-02-05 13:00 | NUR ---
PATIENT IS RESTING IN BED. NO SS/S OF DISTRESS. ALL SAFETY PRECAUTIONS IN PLACE.
[2021-02-05 16:00] VITALS: BP 129/74
--- NOTE | 2021-02-05 17:56 | NUR ---
ST AT PATIENT BEDSIDE FOR SWALLOW EVAL. PATIENT DID NOT TRY JUICE OR APPLE SAUCE AND KEPT MOVING THE FOOD/DRINK AWAY. ST ADVISED TO KEEP PATIENT NPO.
--- NOTE | 2021-02-05 18:10 | NUR ---
PT WAS SEEN FOR DYSPHAGIA. PT WAS NOT ABLE TO INITIATE SWALLOW. PT WAS NOT ABLE TO OPEN MOUTH FOR TRIALS. RECOMMENDATION NOTHING BY MOUTH
--- NOTE | 2021-02-05 19:30 | NUR ---
RECEIVED ENDORSEMENT FROM JAMAAL NGUYEN AT BEDSIDE FOR CONTINUITY OF CARE, PT IN STABLE CONDITION.
--- NOTE | 2021-02-05 19:40 | NUR ---
ENDORSED PATIENT TO MEXICAN FOOD MAKER RN FOR CONTINUITY OF CARE. PATIENT IS STABLE.
[2021-02-05 20:00] VITALS: BP 113/68
--- NOTE | 2021-02-05 20:00 | NUR ---
PT LYING IN BED AOX1, ON ROOM AIR. WITH RIGHT F/A 22G INTACT AND RUNNING 1/2 NS AT 100MLS/HR. PT WAS TURNED, CHANGED AND REPOSITIONED IN BED V/S FOLLOWS: T 97.9 P 64 R 18 B/P 113/68 02 100%. ALL SEIZURES AND FALLS PRECAUTIONS IN PLACE.
--- NOTE | 2021-02-05 21:45 | NUR ---
PT RECEIVED ORDERED IVP PHENOBARBITAL ORDERED WELL KEPPRA IV HUNG AND RUNNING AT 220MLS/HR ORDERED.PT UNABLE TO COMPREHEND TEACHING. ALL ORDERED PRECAUTIONS IN PLACE.
--- NOTE | 2021-02-05 22:00 | NUR ---
ROUNDS DONE, PT IN BED RESTING WITH EYES CLOSED. IV FLUIDS RUNNING ORDERED. NO SEIZURE ACTIVITY NOTED. ALL ORDERED PRECAUTIONS IN PLACE.
--- NOTE | 2021-02-06 00:30 | NUR ---
MARY HUNG AND RUNNING ORDERED.
[2021-02-06] MEDS: PIPERACILLIN/TAZOBACTAM 3.375 GM in DEXTROSE 5% 50 ML IV SCH ×4 (00:37→18:39)
[2021-02-06] MEDS: SKINTEGRITY HYDROGEL TP SCH ×2 (01:00→13:59)
[2021-02-06 04:00] VITALS: BP 120/91
--- NOTE | 2021-02-06 04:30 | NUR ---
PT IN BED AOX1 FLUIDS RUNNING ORDERED. PT WAS TURNED, CHANGED AND REPOSITIONED IN BED. ALL ORDERED PRECAUTIONS IN PLACE.
--- NOTE | 2021-02-06 05:45 | NUR ---
NIKHILSYN HUNG AND RUNNING 100MLS/HR ORDERED. ALL ORDERED PRECAUTIONS IN PLACE.
[2021-02-06] MEDS: NACL 0.45% 1,000 ML IV SCH ×2 (06:13→14:00)
--- NOTE | 2021-02-06 07:25 | NUR ---
RECEIVED REPORT FROM WEB CONTENT DEVELOPER NURSE FOR CONTINUITY OF PATIENT CARE. PATIENT SLEEPING. NO ACUTE DISTRESS NOTED. PATIENT HAS R FA 22G RUNNING 1/2 NS AT 60 ML/HR. PATIENT ON ROOM AIR. ALL SAFETY MEASURES IN PLACE. CALL LIGHT WITHIN REACH WILL CONTINUE TO MONITOR.
[2021-02-06 08:00] VITALS: BP 103/76
[2021-02-06] MEDS: VITAMIN D 400 IU TAB PO SCH (09:00)
[2021-02-06] MEDS: DOCUSATE SODIUM 250 MG GELCAP PO SCH (09:00)
[2021-02-06] MEDS: POLYETHYLENE GLYCOL 17 GM/PKT PO SCH ×2 (09:00→21:00)
[2021-02-06] MEDS: ZINC SULF 220 MG CAP PO SCH (09:00)
[2021-02-06] MEDS: rOPINIRole 0.25 MG TAB PO SCH ×2 (09:00→21:00)
[2021-02-06] MEDS: LORATADINE 10 MG TAB PO SCH (09:00)
[2021-02-06] MEDS: QUEtiapine FUMARATE 100 MG TAB PO SCH ×2 (09:00→21:00)
[2021-02-06] MEDS: PHENobarbital 130 MG/ML VIAL IV SCH ×2 (09:00→22:19)
[2021-02-06] MEDS: ASCORBIC ACID 500 MG TAB PO SCH (09:00)
[2021-02-06 09:13] LABS: BASOPHILS # (AUTO) 0.1 K/uL (0.00-0.22); BASOPHILS % (AUTO) 1.4 % (0.0-2.0); EOSINOPHILS % (AUTO) 0.1 % (0.0-4.0); HEMATOCRIT 33.4 % (36-52); HEMOGLOBIN 10.5 g/dL (12.0-18.0); LYMPHOCYTES # (AUTO) 1.8 K/uL (2.0-11.5); MEAN CORPUSCULAR HEMOGLOBIN 22 pg (27-31); MEAN CORPUSCULAR HGB CONC 32 g/dL (33-37); MEAN CORPUSCULAR VOLUME 69.8 fL (80-94); MONOCYTES # (AUTO) 0.6 K/uL (0.8-1.0); MONOCYTES % (AUTO) 10.4 % (1.7-9.3); NEUTROPHILS # (AUTO) 3.1 K/uL (1.8-7.7); NEUTROPHILS % (AUTO) 56.1 % (42.2-75.2); PLATELET COUNT (AUTO) 261 K/uL (140-450); RED BLOOD CELL COUNT(AUTO) 4.78 MIL/uL (4.20-6.10); RED CELL DISTRIBUTION WIDTH 16.9 % (11.6-13.7); WHITE BLOOD COUNT (AUTO) 5.5 K/uL (4.8-10.8)
[2021-02-06 09:15] LABS: ANION GAP 17.9 (8-16); CARBON DIOXIDE 20.1 mmol/L (21-32); CREATININE 0.7 mg/dL (0.6-1.3)
--- NOTE | 2021-02-06 09:40 | NUR ---
PATIENT SLEEPING. NO ACUTE DISTRESS NOTED. PATIENT ON ON ROOM AIR. ALL SAFETY MEASURES IN PLACE. CALL LIGHT WITHIN REACH. WILL CONTINUE TO MONITOR.
[2021-02-06] MEDS: PANTOPRAZOLE 40 MG INJ VIAL IVP SCH (10:00)
[2021-02-06] MEDS: PHENYTOIN 100 MG/2 ML VIAL IVP SCH ×3 (10:00→18:38)
[2021-02-06] MEDS: levETIRAcetam 2,000 MG in NACL 0.9% 100 ML IV SCH ×2 (10:06→22:17)
--- NOTE | 2021-02-06 11:44 | NUR ---
(02/06/21) RD FOLLOW UP COMPLETED PLEASE REFER TO NUTRITION PROGRESS NOTE UNDER CARE ACTIVITY FOR ESTIMATED NUTRITION NEEDS. RD RECOMMENDATIONS: 1. RECOMMEND CONTINUE NPO 2. RECOMMEND PEG PLACEMENT FOR INADEQUATE PO INTAKE. CONSIDER JEVITY 1.2 @ 50 ML/HR WITH FREE WATER FLUSH OF 150 ML Q4H. THIS WILL PROVIDES 1200 ML TOTAL VOLUME, 1440 KCAL, 72 GM PROTEIN, AND 966 FREE WATER + 900 ML FROM [facility]. THIS WILL MEET 88% UPPER-END EST KCAL NEEDS AND >100% EST PROTEIN NEEDS; ADEQUATE. RD TO FOLLOW-UP 2-3 DAYS, HIGH RISK PRANAY HERNANDEZ, , RDN
--- NOTE | 2021-02-06 11:46 | NUR ---
PATIENT SLEEPING. NO ACUTE DISTRESS NOTED. PATIENT ON ON ROOM AIR. TRIPLE AIR VALVE TESTER AT BESIDE PERFORMING ADLS FOR PATIENT. ALL SAFETY MEASURES IN PLACE. CALL LIGHT WITHIN REACH. WILL CONTINUE TO MONITOR.
--- NOTE | 2021-02-06 13:37 | NUR ---
PATIENT SLEEPING. NO ACUTE DISTRESS NOTED. PATIENT ON ON ROOM AIR. ALL SAFETY MEASURES IN PLACE. CALL LIGHT WITHIN REACH. WILL CONTINUE TO MONITOR.
--- NOTE | 2021-02-06 14:25 | NUR ---
PATIENT SLEEPING. NO ACUTE DISTRESS NOTED. ALL SAFETY MEASURES IN PLACE. CALL LIGHT WITHIN REACH. WILL CONTINUE TO MONITOR.
--- NOTE | 2021-02-06 17:16 | NUR ---
PATIENT AWAKE. NO ACUTE DISTRESS NOTED. BREATHING EVEN AND UNLABORED. PATIENT ON ROOM AIR. ALL SAFETY MEASURES IN PLACE. CALL LIGHT WITHIN REACH. WILL CONTINUE TO MONITOR .
--- NOTE | 2021-02-06 19:25 | NUR ---
ENDORSED TO COACH TOUR DRIVER FOR CONTINUITY OF PATIENT CARE. PATIENT STABLE. ALL SAFETY MEASURES IN PLACE.
[2021-02-06 20:00] VITALS: BP 162/87
--- NOTE | 2021-02-06 20:00 | NUR ---
Assumed care. Laying quietly in bed. In no acute distress respiratory or otherwise. IV fluids infusing at 100 ml/hr. He is NPO. PO medications will not be administered non by mouth status. He is able to turn self at will. Bed is in a low position. Call light within reach. Will continue to monitor.
[2021-02-07] MEDS: PIPERACILLIN/TAZOBACTAM 3.375 GM in DEXTROSE 5% 50 ML IV SCH ×4 (00:38→18:00)
[2021-02-07] MEDS: SKINTEGRITY HYDROGEL TP SCH ×2 (00:40→13:00)
--- NOTE | 2021-02-07 01:24 | NUR ---
Dressing to midback wound has been changed. Sacrum coccyx plus groin area intact. Bed bath given. Incontinent of urine. On Iv fluids. Will continue to monitor.
[2021-02-07] MEDS: NACL 0.45% 1,000 ML IV SCH ×3 (02:34→22:13)
[2021-02-07 04:00] VITALS: BP 101/66
--- NOTE | 2021-02-07 07:05 | NUR ---
RECEIVE REPORT FROM MUSIC CRITIC NURSE FOR CONTINUITY OF CARE. PATIENT SLEEPING. NO ACUTE DISTRESS NOTED. PATIENT ON ROOM AIR. ALL SAFETY MEASURES IN PLACE. CALL LIGHT WITHIN REACH. WILL CONTINUE TO MONITOR.
--- NOTE | 2021-02-07 07:25 | NUR ---
RECEIVE REPORT FROM MOTION PICTURE NARRATOR NURSE FOR CONTINUITY OF CARE. PATIENT SLEEPING. NO ACUTE DISTRESS NOTED. PATIENT ON ROOM AIR. ALL SAFETY MEASURES IN PLACE. CALL LIGHT WITHIN REACH. WILL CONTINUE TO MONITOR.
--- NOTE | 2021-02-07 07:53 | NUR ---
ENDORSED REPORT TO DAY SHIFT NURSE YASMIN FOR PATIENT CONTINUITY OF CARE. PATIENT STABLE.
[2021-02-07] MEDS: levETIRAcetam 2,000 MG in NACL 0.9% 100 ML IV SCH ×2 (08:59→21:49)
[2021-02-07] MEDS: PHENYTOIN 100 MG/2 ML VIAL IVP SCH ×3 (08:59→17:00)
[2021-02-07] MEDS: PANTOPRAZOLE 40 MG INJ VIAL IVP SCH (08:59)
[2021-02-07] MEDS: PHENobarbital 130 MG/ML VIAL IV SCH ×2 (08:59→21:48)
[2021-02-07] MEDS: VITAMIN D 400 IU TAB PO SCH (09:00)
[2021-02-07] MEDS: ASCORBIC ACID 500 MG TAB PO SCH (09:00)
[2021-02-07] MEDS: POLYETHYLENE GLYCOL 17 GM/PKT PO SCH ×2 (09:00→21:00)
[2021-02-07] MEDS: QUEtiapine FUMARATE 100 MG TAB PO SCH ×2 (09:00→21:00)
[2021-02-07] MEDS: rOPINIRole 0.25 MG TAB PO SCH ×2 (09:00→21:00)
[2021-02-07] MEDS: ZINC SULF 220 MG CAP PO SCH (09:00)
[2021-02-07] MEDS: LORATADINE 10 MG TAB PO SCH (09:00)
[2021-02-07] MEDS: DOCUSATE SODIUM 250 MG GELCAP PO SCH (09:00)
[2021-02-07 09:37] LABS: ANION GAP 18.8 (8-16); CARBON DIOXIDE 20.3 mmol/L (21-32); CREATININE 0.8 mg/dL (0.6-1.3); POTASSIUM 3.1 mmol/L (3.5-5.1)
[2021-02-07 09:40] LABS: BASOPHILS # (AUTO) 0.1 K/uL (0.00-0.22); BASOPHILS % (AUTO) 1.4 % (0.0-2.0); HEMATOCRIT 34.7 % (36-52); HEMOGLOBIN 10.8 g/dL (12.0-18.0); LYMPHOCYTES # (AUTO) 1.6 K/uL (2.0-11.5); LYMPHOCYTES % (AUTO) 34.8 % (20.5-51.1); MEAN CORPUSCULAR HEMOGLOBIN 22 pg (27-31); MEAN CORPUSCULAR HGB CONC 31 g/dL (33-37); MEAN CORPUSCULAR VOLUME 71.1 fL (80-94); MONOCYTES # (AUTO) 0.5 K/uL (0.8-1.0); MONOCYTES % (AUTO) 10.2 % (1.7-9.3); NEUTROPHILS # (AUTO) 2.5 K/uL (1.8-7.7); NEUTROPHILS % (AUTO) 53.6 % (42.2-75.2); PLATELET COUNT (AUTO) 282 K/uL (140-450); RED BLOOD CELL COUNT(AUTO) 4.88 MIL/uL (4.20-6.10); RED CELL DISTRIBUTION WIDTH 17.3 % (11.6-13.7); WHITE BLOOD COUNT (AUTO) 4.7 K/uL (4.8-10.8)
[2021-02-07 09:43] LABS: MAGNESIUM 1.7 mg/dL (1.8-2.4); PHOSPHORUS 1.4 mg/dL (2.5-4.9)
[2021-02-07] MEDS ORDERED: MAG SULF 2000 MG/WATER PREMIX 50 ML IV SCH (10:50)
[2021-02-07] MEDS ORDERED: POTASSIUM CHLORIDE 40 MEQ, LIDOCAINE MPF 1% 25 MG in NACL 0.9% 250 ML IV ONE (11:15)
[2021-02-07 20:00] VITALS: BP 117/73
--- NOTE | 2021-02-07 20:00 | NUR ---
NURSE NOTES AND ENDORSEMENT ' REPORT GIVEN TO NIGHT NURSE TO ASSUME CQRE OF PATIENT. SBAR GIVEN AND ALL QUESTIONS ANSWERED. JAMIE MILLER
[2021-02-08] MEDS: SKINTEGRITY HYDROGEL TP SCH ×2 (00:19→13:11)
[2021-02-08 04:00] VITALS: BP 108/66
--- NOTE | 2021-02-08 05:38 | NUR ---
Assumed care last night. He was calm, and he remains calm. Able to follow simple commands. He is able to turn self in the bed. The dressing on the midback wound has been changed. Tolerated well. Has been changed several times 2/2 urinary incontinence. IV fluids are currently infusing. Will endorse care to AM EN
[2021-02-08] MEDS: NACL 0.45% 1,000 ML IV SCH ×2 (06:39→17:56)
[2021-02-08 06:45] LABS: BASOPHILS # (AUTO) 0.1 K/uL (0.00-0.22); BASOPHILS % (AUTO) 1.6 % (0.0-2.0); EOSINOPHILS % (AUTO) 0.1 % (0.0-4.0); HEMATOCRIT 36.2 % (36-52); HEMOGLOBIN 11.2 g/dL (12.0-18.0); LYMPHOCYTES % (AUTO) 41.4 % (20.5-51.1); MEAN CORPUSCULAR HEMOGLOBIN 22 pg (27-31); MEAN CORPUSCULAR HGB CONC 31 g/dL (33-37); MEAN CORPUSCULAR VOLUME 71.8 fL (80-94); MONOCYTES # (AUTO) 0.7 K/uL (0.8-1.0); MONOCYTES % (AUTO) 13.4 % (1.7-9.3); NEUTROPHILS # (AUTO) 2.1 K/uL (1.8-7.7); NEUTROPHILS % (AUTO) 43.5 % (42.2-75.2); PLATELET COUNT (AUTO) 301 K/uL (140-450); RED BLOOD CELL COUNT(AUTO) 5.04 MIL/uL (4.20-6.10); WHITE BLOOD COUNT (AUTO) 4.9 K/uL (4.8-10.8)
--- NOTE | 2021-02-08 07:25 | NUR ---
RECEIVE REPORT FROM CHAINSTITCH TUNNEL ELASTIC OPERATOR NURSE FOR CONTINUITY OF CARE. PATIENT SLEEPING. NO ACUTE DISTRESS NOTED. PATIENT ON ROOM AIR. ALL SAFETY MEASURES IN PLACE. CALL LIGHT WITHIN REACH. WILL CONTINUE TO MONITOR
[2021-02-08 07:43] LABS: ANION GAP 19.8 (8-16); CARBON DIOXIDE 17.9 mmol/L (21-32); CREATININE 0.7 mg/dL (0.6-1.3); MAGNESIUM 1.7 mg/dL (1.8-2.4); PHOSPHORUS 1.4 mg/dL (2.5-4.9); POTASSIUM 3.7 mmol/L (3.5-5.1); TOTAL BILIRUBIN 0.4 mg/dL (0.0-1.0)
[2021-02-08] MEDS: LORATADINE 10 MG TAB PO SCH (09:00)
[2021-02-08] MEDS: POLYETHYLENE GLYCOL 17 GM/PKT PO SCH ×2 (09:00→21:00)
[2021-02-08] MEDS: VITAMIN D 400 IU TAB PO SCH (09:00)
[2021-02-08] MEDS: QUEtiapine FUMARATE 100 MG TAB PO SCH ×2 (09:00→21:00)
[2021-02-08] MEDS: rOPINIRole 0.25 MG TAB PO SCH ×2 (09:00→21:00)
[2021-02-08] MEDS: ASCORBIC ACID 500 MG TAB PO SCH (09:00)
[2021-02-08] MEDS: ZINC SULF 220 MG CAP PO SCH (09:00)
[2021-02-08] MEDS: DOCUSATE SODIUM 250 MG GELCAP PO SCH (09:00)
[2021-02-08] MEDS: PANTOPRAZOLE 40 MG INJ VIAL IVP SCH (09:37)
[2021-02-08] MEDS: PHENobarbital 130 MG/ML VIAL IV SCH ×2 (09:37→21:00)
[2021-02-08] MEDS: levETIRAcetam 2,000 MG in NACL 0.9% 100 ML IV SCH ×2 (09:37→21:00)
[2021-02-08] MEDS: PHENYTOIN 100 MG/2 ML VIAL IVP SCH ×3 (09:37→17:55)
--- NOTE | 2021-02-08 09:50 | NUR ---
PATIENT AWAKE. NO ACUTE DISTRESS NOTED. BREATHING EVEN AND UNLABORED. PATIENT ON ROOM AIR. PT RECEIVE IV MORNING MEDS. PT UNABLE TO SWALLOW PO MEDS, HE FAIL SWALLOW TEST EVAL. INFORMED DR DID NOT RECEIVE AN ANSWER FROM DR YET WILL KEEP FOLLOWING. ALL SAFETY MEASURES IN PLACE. CALL LIGHT WITHIN REACH. WILL CONTINUE TO MONITOR
--- NOTE | 2021-02-08 11:30 | NUR ---
PATIENT AWAKE. NO ACUTE DISTRESS NOTED. BREATHING EVEN AND UNLABORED. PATIENT ON ROOM AIR. DR TRAVIS RESPONDED AND ASK TO FO;;OW UP REGARD PT PO MEDS WITH DR GAINES. DR GAINES INFORMED, AND ASKED TO CONTACT THE FACILITY , [facility] TO TRY TO INFORMED THEM ABOUT THE PLAN OF INSERTING PEG, AND TO OBTAIN CONSENT, THE FACILITY WAS CALLED MULTIPLE TIME WITH NO RESPONSE,. THE ENDODONTIST FRANCISCO HERNANDEZ ALSO WAS CONTACTED AT PHONE NUMBER [phone] AND GOT NO RESPONSE. A VOICE MESSAGE WAS LEFT AND A PHONE NUMBER OF THE TELEMETRY UNIT TO CALL BACK.
[2021-02-08 12:00] VITALS: BP 93/62
--- NOTE | 2021-02-08 13:02 | NUR ---
SPOKE WITH JAYSON RIZZO THE CLINICAL DIRECTOR AT PHONE NUMBER [phone] ABOUT OBTAINING THE CONSENT FOR PEG, SHE ASK FOR SWALLOW REEVALUATION. DR JOSE INFORMED. SWALLOW EVALUATION WAS ORDERED. FACILITY FAX NUM. [phone].
--- NOTE | 2021-02-08 15:05 | NUR ---
PATIENT SLEEPING ON BED. NO ACUTE DISTRESS NOTED. BREATHING EVEN AND UNLABORED. PATIENT ON ROOM AIR. ALL SAFETY MEASURES IN PLACE. CALL LIGHT WITHIN REACH
[2021-02-08] MEDS ORDERED: MAG SULF 2000 MG/WATER PREMIX 50 ML IV ONE (15:15)
--- NOTE | 2021-02-08 17:20 | NUR ---
PATIENT LAYING ON BED. NO ACUTE DISTRESS NOTED. BREATHING EVEN AND UNLABORED. PATIENT ON ROOM AIR. PT GOT CHANGED, NO COMPLAINS. ALL SAFETY MEASURES IN PLACE. CALL LIGHT WITHIN REACH
--- NOTE | 2021-02-08 19:25 | NUR ---
GIVEN REPORT TO OPERA SINGER NURSE
[2021-02-08 20:00] VITALS: BP 124/79
[2021-02-09] MEDS: NACL 0.45% 1,000 ML IV SCH ×3 (00:30→23:43)
[2021-02-09] MEDS: SKINTEGRITY HYDROGEL TP SCH ×2 (02:29→13:00)
[2021-02-09 04:00] VITALS: BP 122/78
[2021-02-09 06:49] LABS: BASOPHILS # (AUTO) 0.1 K/uL (0.00-0.22); BASOPHILS % (AUTO) 1.2 % (0.0-2.0); EOSINOPHILS % (AUTO) 0.1 % (0.0-4.0); HEMATOCRIT 36.7 % (36-52); HEMOGLOBIN 11.4 g/dL (12.0-18.0); LYMPHOCYTES # (AUTO) 1.5 K/uL (2.0-11.5); LYMPHOCYTES % (AUTO) 29.3 % (20.5-51.1); MEAN CORPUSCULAR HEMOGLOBIN 22 pg (27-31); MEAN CORPUSCULAR HGB CONC 31 g/dL (33-37); MEAN CORPUSCULAR VOLUME 72.2 fL (80-94); MONOCYTES # (AUTO) 0.8 K/uL (0.8-1.0); MONOCYTES % (AUTO) 14.9 % (1.7-9.3); NEUTROPHILS # (AUTO) 2.8 K/uL (1.8-7.7); NEUTROPHILS % (AUTO) 54.5 % (42.2-75.2); PLATELET COUNT (AUTO) 268 K/uL (140-450); RED BLOOD CELL COUNT(AUTO) 5.08 MIL/uL (4.20-6.10); RED CELL DISTRIBUTION WIDTH 18.4 % (11.6-13.7); WHITE BLOOD COUNT (AUTO) 5.2 K/uL (4.8-10.8)
--- NOTE | 2021-02-09 07:30 | NUR ---
RECEIVE REPORT FROM CUT OFF MACHINE OPERATOR NURSE FOR CONTINUITY OF CARE. PATIENT SLEEPING. NO ACUTE DISTRESS NOTED. PATIENT ON ROOM AIR. ALL SAFETY MEASURES IN PLACE. CALL LIGHT WITHIN REACH. WILL CONTINUE TO MONITOR.
[2021-02-09 07:31] LABS: ALBUMIN 3.1 g/dL (3.4-5.0); ANION GAP 20.8 (8-16); CARBON DIOXIDE 15.1 mmol/L (21-32); PHOSPHORUS 1.2 mg/dL (2.5-4.9); POTASSIUM 3.9 mmol/L (3.5-5.1); TOTAL BILIRUBIN 0.4 mg/dL (0.0-1.0)
[2021-02-09 07:58] LABS: CREATININE 0.9 mg/dL (0.6-1.3)
[2021-02-09] MEDS: PHENobarbital 130 MG/ML VIAL IV SCH ×2 (08:59→23:42)
[2021-02-09] MEDS: PANTOPRAZOLE 40 MG INJ VIAL IVP SCH (08:59)
[2021-02-09] MEDS: PHENYTOIN 100 MG/2 ML VIAL IVP SCH ×3 (08:59→16:16)
[2021-02-09] MEDS: VITAMIN D 400 IU TAB PO SCH (09:00)
[2021-02-09] MEDS: LORATADINE 10 MG TAB PO SCH (09:00)
[2021-02-09] MEDS: DOCUSATE SODIUM 250 MG GELCAP PO SCH (09:00)
[2021-02-09] MEDS: rOPINIRole 0.25 MG TAB PO SCH (09:00)
[2021-02-09] MEDS: ASCORBIC ACID 500 MG TAB PO SCH (09:00)
[2021-02-09] MEDS: QUEtiapine FUMARATE 100 MG TAB PO SCH ×2 (09:00→21:00)
[2021-02-09] MEDS: ZINC SULF 220 MG CAP PO SCH (09:00)
[2021-02-09] MEDS: levETIRAcetam 2,000 MG in NACL 0.9% 100 ML IV SCH ×2 (09:00→23:42)
[2021-02-09] MEDS: POLYETHYLENE GLYCOL 17 GM/PKT PO SCH ×2 (09:00→21:00)
--- NOTE | 2021-02-09 09:00 | NUR ---
PATIENT SLEEPING. NO ACUTE DISTRESS NOTED. PATIENT ON ROOM AIR. IV MEDS GIVEN, KEPPRA IV WAS NOT GIVEN PT PULLED OUT IV. BEFORE STARTING THE INFUSION OF THE MEDICATION, NURSE MARIA LUZ TRIED TO INSERT AN IV MULTIPLE TIME, WAS NOT SUCCESSFUL, DR RAMOS INFORMED. ASKED DR RAMOS IF CAN WE GET AN ORDER FOR MIDLINE. WAITING FOR HIS RESPONSE. WILL KEEP FOLLOWING ALL SAFETY MEASURES IN PLACE. CALL LIGHT WITHIN REACH. WILL CONTINUE TO MONITOR.
--- NOTE | 2021-02-09 10:15 | NUR ---
PATIENT SLEEPING. NO ACUTE DISTRESS NOTED. PATIENT ON ROOM AIR. DR ASKED FOR MIDLINE, ORDER WAS PLACE, CONSENT WAS OBTAINED FROM JAYSON RIZZO THE CLINICAL DIRECTOR [facility], AT THIS PHONE NUMBER [phone] SHE IS THE PERSON THAT CAN PROVIDE CONSENT FOR THE PT. TWO NURSES WITNESS THE TELEPHONE CONSENT . ALL SAFETY M EASURES IN PLACE. CALL LIGHT WITHIN REACH. WILL CONTINUE TO MONITOR.
--- NOTE | 2021-02-09 11:00 | NUR ---
PATIENT SLEEPING. NO ACUTE DISTRESS NOTED. PATIENT ON ROOM AIR. ALL SAFETY MEASURES IN PLACE. CALL LIGHT WITHIN REACH. WILL CONTINUE TO MONITOR.
[2021-02-09 12:00] VITALS: BP 108/65
--- NOTE | 2021-02-09 13:35 | NUR ---
02/09/21 RD FOLLOW UP COMPLETED PLEASE REFER TO NUTRITION ASSESSMENT UNDER CARE ACTIVITY FOR ESTIMATED NUTRITIONAL NEEDS. 1. CURRENTLY NPO 2. PENDING SWALLOW EVALUATION RECOMMENDATIONS 3. RECOMMEND IV DEXTROSE FOR HYPOGLYCEMIA OF 60 4. RECOMMEND PEG PLACEMENT FOR INADEQUATE PO INTAKE. CONSIDER JEVITY 1.2 @ 50 ML/HR WITH FREE WATER FLUSH OF [address] TO FOLLOW-UP 2-3 DAYS, HIGH RISK OLIVIA HILL RD
--- NOTE | 2021-02-09 14:01 | NUR ---
PT WAS SEEN FOR DYSPHAGIA. PT WAS NOT ABLE TO IMITATE SWALLOW. PT HAD POCKETING FOR 1 TRIALS, AND REFUSED AFTER 1 TRIAL. RECOMMENDATION NOTHING BY MOUTH
--- NOTE | 2021-02-09 14:18 | NUR ---
PATIENT SLEEPING. NO ACUTE DISTRESS NOTED. PATIENT ON ROOM AIR. SWALLOW EVALUATION DONE TODAY , WAS NOT SUCCESSFUL, JAYSON RIZZO THE CLINICAL DIRECTOR [facility], AT THIS PHONE NUMBER [phone] WAS CONTACTED TO OBTAIN CONSENT FOR PEG, SHE SAID SHE IS NOT GIVING CONSENT AT THIS TIME. ALL SAFETY MEASURES IN PLACE. CALL LIGHT WITHIN REACH. WILL CONTINUE TO MONITOR
--- NOTE | 2021-02-09 15:59 | NUR ---
PATIENT LAYING ON BED. NO ACUTE DISTRESS NOTED. PATIENT ON ROOM AIR. NO COMPLAINS REGIONAL SALES CONSULTANT NEXT TO PT BED. STILL WAITING FOR DR RAMOS TO SIGN THE CONSENT FOR MIDLINE. REMINDED HIM FOR THE THIRD TIME TO SIGN THE CONSENT ALL SAFETY MEASURES IN PLACE. CALL LIGHT WITHIN REACH WILL CONTINUE TO MONITOR
--- NOTE | 2021-02-09 17:25 | NUR ---
PATIENT SITTING ON BED. NO ACUTE DISTRESS NOTED. PATIENT ON ROOM AIR. CONSENT WAS SIGNED BY DR RAMOS. PICC LINE SERVES WAS CONTACTED, THEY SAID THEY WILL BE COMING TODAY FOR MIDLINE PLACEMENT. ALL SAFETY MEASURES IN PLACE. CALL LIGHT WITHIN REACH
--- NOTE | 2021-02-09 18:49 | NUR ---
PATIENT LAYING ON BED. NO ACUTE DISTRESS NOTED. PATIENT ON ROOM AIR. ALL SAFETY MEASURES IN PLACE. CALL LIGHT WITHIN REACH
--- NOTE | 2021-02-09 19:10 | NUR ---
REPORT GIVEN TO CASE OPERATOR NURSE
--- NOTE | 2021-02-09 19:11 | NUR ---
RECD. RESTING IN BED, AWAKE, A/OX1. RESPIRATION EVEN AND UNLABORED. NO IV LINE, WAITING FOR PICC LINE NURSE TO COME TO INSERT PICC LINE. INCONTINENT. UNABLE TO VERBALIZED NEEDS BUT FOLLOW SIMPLE COMMANDS. NOTED BRUISE AT THE RIGHT UPPER ARM. WOUND IN THE BACK COVERED WITH DRESSING DRY AND INTACT. REORIENTED TO HOSPITAL SETTING. NEEDS REINFORCEMENTS. NO APPEARANCE OF PAIN NOTED, FLACC - 0.
[2021-02-09 20:00] VITALS: BP 112/75
--- NOTE | 2021-02-09 21:00 | NUR ---
SCHEDULED MEDICATIONS NOT GIVEN, PATIENT IS NPO. FAILED SWALLOW EVALUATION PER ENDORSED BY AM NURSE.
--- NOTE | 2021-02-09 21:45 | NUR ---
BEDDINGS CHANGED. CLEANSED PATIENT AND DIAPER CHANGED. ABLE TO TURN HIMSELF TO THE RIGHT AND TO THE LEFT. MADE COMFORTABLE IN BED WITH PILLOWS.
--- NOTE | 2021-02-09 23:10 | NUR ---
PICC LINE NURSE ROHITH CAME AND PREPARED PATIENT FOR INSERTION OF MIDLINE.
--- NOTE | 2021-02-09 23:23 | NUR ---
MIDLINE INSERTION FINISHED. LINE IS ALREADY READY TO USE PER PICC LINE NURSE.
--- NOTE | 2021-02-09 23:28 | NUR ---
Patient's Plan of Care was discussed and reviewed with GIFT MANAGER: LOULOU CHASE
--- NOTE | 2021-02-09 23:42 | NUR ---
SOO IVPB AND PHENOBARBITAL ADMINISTERED BY JAMAAL FU.
--- NOTE | 2021-02-10 | NUR ---
SLEEPING COMFORTABLY IN BED.
[2021-02-10] MEDS: SKINTEGRITY HYDROGEL TP SCH ×2 (01:00→13:21)
--- NOTE | 2021-02-10 02:00 | NUR ---
SLEEPING ON HIS RIGHT SIDE, RESPIRATION EVEN AND UNLABORED.
[2021-02-10 04:00] VITALS: BP 109/78
--- NOTE | 2021-02-10 05:00 | NUR ---
DIAPER CHANGED, MADE COMFORTABLE IN BED WITH WARM BLANKETS.
[2021-02-10 06:21] LABS: BASOPHILS # (AUTO) 0.1 K/uL (0.00-0.22); EOSINOPHILS % (AUTO) 0.1 % (0.0-4.0); HEMATOCRIT 38.8 % (36-52); HEMOGLOBIN 11.9 g/dL (12.0-18.0); LYMPHOCYTES # (AUTO) 1.6 K/uL (2.0-11.5); LYMPHOCYTES % (AUTO) 25.1 % (20.5-51.1); MEAN CORPUSCULAR HEMOGLOBIN 22 pg (27-31); MEAN CORPUSCULAR HGB CONC 31 g/dL (33-37); MONOCYTES # (AUTO) 0.8 K/uL (0.8-1.0); MONOCYTES % (AUTO) 13.6 % (1.7-9.3); NEUTROPHILS # (AUTO) 3.7 K/uL (1.8-7.7); NEUTROPHILS % (AUTO) 60.2 % (42.2-75.2); PLATELET COUNT (AUTO) 278 K/uL (140-450); RED BLOOD CELL COUNT(AUTO) 5.38 MIL/uL (4.20-6.10); RED CELL DISTRIBUTION WIDTH 19.3 % (11.6-13.7); WHITE BLOOD COUNT (AUTO) 6.2 K/uL (4.8-10.8)
[2021-02-10 07:07] LABS: ALBUMIN 3.3 g/dL (3.4-5.0); ANION GAP 22.2 (8-16); CARBON DIOXIDE 14.7 mmol/L (21-32); CREATININE 0.9 mg/dL (0.6-1.3); PHOSPHORUS 1.2 mg/dL (2.5-4.9); POTASSIUM 3.9 mmol/L (3.5-5.1); TOTAL BILIRUBIN 0.4 mg/dL (0.0-1.0)
--- NOTE | 2021-02-10 07:25 | NUR ---
RECEIVED BEDSIDE REPORT FROM TANNING DRUM OPERATOR NURSE FOR CONTINUITY OF CARE. PT IS ASLEEP. CHEST RISE AND FALL IS SYMMETRICAL. ON RA WITH BREATHING UNLABORED. PT IS INCONTINENT OF BOWEL AND BLADDER WITH DRY DIAPER IN PLACE. SKIN IS WARM AND DRY. WOUND ON THE MIDDLE BACK WITH DRY DRESSING IN PLACE. MIDLINE IN PLACE ON THE RIGHT UA RUNNING FLUIDS ORDERED. PT IS STABLE AT THIS TIME. PLAN OF CARE DISCUSSED.
--- NOTE | 2021-02-10 07:30 | NUR ---
CONDITION REMAIN STABLE. ENDORSED TO AM NURSE FOR CONTINUITY OF CARE.
[2021-02-10 08:00] VITALS: BP 128/80
[2021-02-10] MEDS: PANTOPRAZOLE 40 MG INJ VIAL IVP SCH (08:45)
[2021-02-10] MEDS: PHENYTOIN 100 MG/2 ML VIAL IVP SCH ×3 (08:46→16:32)
[2021-02-10] MEDS: levETIRAcetam 2,000 MG in NACL 0.9% 100 ML IV SCH ×2 (08:47→22:14)
[2021-02-10] MEDS: PHENobarbital 130 MG/ML VIAL IV SCH ×2 (08:47→21:00)
[2021-02-10] MEDS: VITAMIN D 400 IU TAB PO SCH (08:56)
[2021-02-10] MEDS: DOCUSATE SODIUM 250 MG GELCAP PO SCH (08:56)
[2021-02-10] MEDS: LORATADINE 10 MG TAB PO SCH (08:56)
[2021-02-10] MEDS: POLYETHYLENE GLYCOL 17 GM/PKT PO SCH ×2 (08:57→21:00)
[2021-02-10] MEDS: QUEtiapine FUMARATE 100 MG TAB PO SCH ×2 (08:57→21:00)
[2021-02-10] MEDS: ZINC SULF 220 MG CAP PO SCH (08:57)
[2021-02-10] MEDS: ASCORBIC ACID 500 MG TAB PO SCH (08:57)
--- NOTE | 2021-02-10 09:20 | NUR ---
PT IS ASLEEP. CHEST RISE AND FALL IS SYMMETRICAL. BREATHING IS UNLABORED. PT IS LAYING ON HIS STOMACH, APPEARS TO BE COMFORTABLE. WILL CONTINUE TO MONITOR.
--- NOTE | 2021-02-10 09:48 | NUR ---
SPOKE TO DR. RAMSEY ABOUT PT. INFORMED HIM PER STEM ROLLER OPERATOR NURSE THAT CONSERVATOR IS STILL CONSIDERING G TUBE PLACEMENT. ALSO INFORMED HIM THAT HE DID NOT PASS SWALLOW EVAL. HE ASKED FOR PHONE NUMBER OF CONSERVATOR, WILL PROVIDE THIS INFORMATION SHORTLY.
--- NOTE | 2021-02-10 09:50 | NUR ---
CALLED MANPREET RIZZO (CONSERVATOR) AT PHONE NUMBER [phone]. LEFT MESSAGE TO CALL BACK [facility] AND PROVIDED PHONE NUMBER. NO ANSWER AT THIS TIME.
--- NOTE | 2021-02-10 09:53 | NUR ---
MESSAGED DR. RAMSEY TO PROVIDE CONSERVATORS PHONE NUMBER. MANPREET .
[2021-02-10] MEDS ORDERED: SODIUM BICARBONATE 8.4% PFS 50 MEQ/50 ML SYR IVP SCH (11:10)
--- NOTE | 2021-02-10 11:30 | NUR ---
WOUND WAS ASSESSED ON MIDDLE BACK. WOUND WAS CLEANSED WITH NS AND PATTED DRY. HYDROGEL WAS APPLIED AND DRESSING WAS ALSO APPLIED. PT TOLERATED THIS WELL. FLACC 0.
--- NOTE | 2021-02-10 13:20 | NUR ---
RECEIVED CALL FROM MANPREET (CONSERVATOR). SHE STATED THAT SHE WOULD LIKE DOCTOR TO SPEAK TO SISTER JOSELYN TO INFORM HER ABOUT THE IMPORTANCE OF THE G TUBE PLACEMENT AND ANSWER ANY QUESTIONS. MANPREET STATES THAT SHE AGREES WITH G TUBE PLACEMENT BUT THE FAMILY IS NOT AGREEING TO THE PROCEDURE. SPOKE TO VESTA, AOC OPERATIONS INTELLIGENCE OFFICER, AND SHE INFORMED ME THAT SHE SPOKE TO THE SISTER (JOSELYN) AND SHE WAS GOING TO COME AND FEED THE PT AT THE BEDSIDE LATER TODAY BEFORE MAKING A DECISION. WILL WAIT FOR FAMILY TO ARRIVE.
--- NOTE | 2021-02-10 13:30 | NUR ---
ROUNDED ON PT. HE IS SLEEPING. NO DISTRESS NOTED. IV IS PATENT AND INFUSING ORDERED. PT IS STABLE.
[2021-02-10] MEDS ORDERED: SODIUM PHOSPHATE 15 MMOLE in NACL 0.9% 250 ML IV SCH (15:00)
--- NOTE | 2021-02-10 15:44 | NUR ---
SODIUM PHOSPHATE IVPB GIVEN FOR PHOSPHORUS LEVEL OF 1.2. SISTER, JANA, AT BEDSIDE VISITING PT. ALL QUESTIONS ANSWERED.
--- NOTE | 2021-02-10 18:07 | NUR ---
SPOKE TO JANA, SISTER, AT BEDSIDE. JANA ATTEMPTED TO FEED PT (PER DOCTOR'S ORDER) ENSURE, JELLO, PUDDING, AND JUICE. PT REFUSED AND WAS UNABLE TO EAT ANYTHING. JANA STATED THAT FAMILY WOULD REALLY LIKE TO SPEAK WITH THE DOCTOR TO GET MORE INFO ON THE PLAN OF CARE. CLEMENTS PROVIDED SISTER'S NUMBER JOSELYN FOR DR. RAMOS TO CALL. MESSAGED DR. RAMOS WITH THIS INFORMATION AND CONTACT INFORMATION. DOCTOR RESPONDED AND IS AWARE.
--- NOTE | 2021-02-10 19:25 | NUR ---
ENDORSED PT TO HAT LINING PASTER NURSE FOR CONTINUITY OF CARE. PT IS STABLE AT THIS TIME. PLAN OF CARE DISCUSSED.
--- NOTE | 2021-02-10 19:26 | NUR ---
RECD. RESTING IN BED SLEEPING COMFORTABLY, EASILY AROUSABLE. RESPIRATION EVEN AND UNLABORED. COLOR NORMAL PER ETHNICITY. SODIUM PHOSPHATE IVPB INFUSING AT 43 ML/HR, RIGHT UPPER ARM PICC LINE. SIDE RAILS WITH PADS FOR SEIZURE PRECAUTION. BED ON ALARM. NO APPEARANCE OF PAIN OR DISCOMFORT NOTED, FLACC -0.
[2021-02-10 20:00] VITALS: BP 130/73
--- NOTE | 2021-02-10 21:00 | NUR ---
SCHEDULED PO MEDICATIONS NOT GIVEN, PATIENT IS STILL NPO. FAMILY REFUSED PATIENT TO HAVE GT ENDORSED BY AM NURSE. AWARE.
--- NOTE | 2021-02-10 22:14 | NUR ---
COMFORTABLE IN BED, IV KEPPRA INFUSED BY JAMAAL GARCIA.
--- NOTE | 2021-02-11 | NUR ---
RESTING IN BED COMFORTABLY SLEEPING. RESPIRATION EVEN AND UNLABORED.
[2021-02-11] MEDS: SKINTEGRITY HYDROGEL TP SCH ×2 (01:00→13:20)
--- NOTE | 2021-02-11 02:00 | NUR ---
COMFORTABLE IN BED, STILL SLEEPING.
--- NOTE | 2021-02-11 04:00 | NUR ---
SPONGE BATH GIVEN BY PUBLIC ADDRESS SERVICER, MADE COMFORTABLE IN BED WITH WARM BLANKETS.
[2021-02-11] MEDS: NACL 0.45% 1,000 ML IV SCH (05:42)
--- NOTE | 2021-02-11 07:00 | NUR ---
CONDITION REMAIN STABLE. WILL ENDORSED TO AM SHIFT NURSE FOR CONTINUITY OF CARE.
[2021-02-11 07:02] LABS: EOSINOPHILS % (AUTO) 0.1 % (0.0-4.0); HEMATOCRIT 35.3 % (36-52); LYMPHOCYTES # (AUTO) 1.4 K/uL (2.0-11.5); LYMPHOCYTES % (AUTO) 30.7 % (20.5-51.1); MEAN CORPUSCULAR HEMOGLOBIN 22 pg (27-31); MEAN CORPUSCULAR HGB CONC 31 g/dL (33-37); MEAN CORPUSCULAR VOLUME 70.8 fL (80-94); MONOCYTES # (AUTO) 0.8 K/uL (0.8-1.0); MONOCYTES % (AUTO) 16.3 % (1.7-9.3); NEUTROPHILS # (AUTO) 2.4 K/uL (1.8-7.7); NEUTROPHILS % (AUTO) 51.9 % (42.2-75.2); PLATELET COUNT (AUTO) 249 K/uL (140-450); RED BLOOD CELL COUNT(AUTO) 4.98 MIL/uL (4.20-6.10); RED CELL DISTRIBUTION WIDTH 19.2 % (11.6-13.7); WHITE BLOOD COUNT (AUTO) 4.7 K/uL (4.8-10.8)
[2021-02-11 07:17] LABS: ALBUMIN 3.1 g/dL (3.4-5.0); CARBON DIOXIDE 16.4 mmol/L (21-32); CREATININE 0.9 mg/dL (0.6-1.3); MAGNESIUM 1.7 mg/dL (1.8-2.4); POTASSIUM 3.4 mmol/L (3.5-5.1); TOTAL BILIRUBIN 0.5 mg/dL (0.0-1.0)
--- NOTE | 2021-02-11 07:30 | NUR ---
RECEIVED BEDSIDE ENDORSEMENT FROM AM SHIFT RN. A&O X1, IVF 0.45% NS 50ML/HR, MIDLINE RIGHT UPPER ARM (2 LUMEN), SAFETY MEASURES IN PLACE, ON ROOM AIR, WILL CONTINUE TO MONITOR.
[2021-02-11 07:39] LABS: PHOSPHORUS 1.1 mg/dL (2.5-4.9)
--- NOTE | 2021-02-11 07:44 | NUR ---
RECEIVED REPORT FROM NIGHT NURSE PT IS SLEEPING IN THE BED, NO SOB NOTED ALERT ORIENTED X 1, NO S/S OF PAIN NOTED. PT IS IN CONTINENT, BED BOUND. HAS HX OF SEIZURES, SIDE RAILS ARE PADDED. PLAN OF CARE DISCUSSED WILL CONTINUE TO FOLLOW.
--- NOTE | 2021-02-11 08:00 | NUR ---
RECEIVED CRITICAL LAB OF PHOSPHOROUS LEVEL 1.1 INFORMED MD AWAITING FOR FURTHER ORDERS.
[2021-02-11] MEDS: POLYETHYLENE GLYCOL 17 GM/PKT PO SCH ×2 (09:00→21:00)
[2021-02-11] MEDS: DOCUSATE SODIUM 250 MG GELCAP PO SCH (09:00)
[2021-02-11] MEDS: ASCORBIC ACID 500 MG TAB PO SCH (09:00)
[2021-02-11] MEDS: QUEtiapine FUMARATE 100 MG TAB PO SCH ×2 (09:00→21:00)
[2021-02-11] MEDS: ZINC SULF 220 MG CAP PO SCH (09:00)
[2021-02-11] MEDS: LORATADINE 10 MG TAB PO SCH (09:00)
[2021-02-11] MEDS: PHENobarbital 130 MG/ML VIAL IV SCH ×2 (09:10→21:27)
[2021-02-11] MEDS: PANTOPRAZOLE 40 MG INJ VIAL IVP SCH (09:10)
[2021-02-11] MEDS: PHENYTOIN 100 MG/2 ML VIAL IVP SCH ×3 (09:10→17:13)
[2021-02-11] MEDS: levETIRAcetam 2,000 MG in NACL 0.9% 100 ML IV SCH ×2 (09:24→21:26)
[2021-02-11] MEDS: VITAMIN D 400 IU TAB PO SCH (09:32)
--- NOTE | 2021-02-11 09:34 | NUR ---
ADMINISTERED IV MEDICATIONS PER MD ORDER. HELD PO PT IS NPO. PT IS IN TH BED NOW TRYING TO GET OUT OF BED. REDIRECTED AND ENCOURAGED TO USE CALL LIGHT.
--- NOTE | 2021-02-11 09:37 | NUR ---
PT HAS PHOSPHOROUS 1.1 ADMINISTERED SODIUM PHOSPHATE PER MD ORDER WILL CONTINUE TO MONITOR PT.
[2021-02-11 10:00] VITALS: BP 137/67
[2021-02-11] MEDS ORDERED: SODIUM PHOSPHATE 15 MMOLE in NACL 0.9% 250 ML IV SCH (10:00)
--- NOTE | 2021-02-11 11:00 | NUR ---
PT'S FAMILY CALLED AND INFORMED THAT THEY WILL BE COMING TO VISIT PT. SISTER INFORMED THAT SHE WILL BE FEEDING PT. EDUCATED HER THAT DOCTOR ORDER TO KEEP PT NPO, PT FAILED SWALLOW TEST TWICE. DOCTOR RECOMMENDED TO PUT G TUBE FOR FEEDING. INFORMED HER ABOUT THE RISK OF FEEDING THE PT. SHE REPLIED SHE WANT TO TRY IT.
--- NOTE | 2021-02-11 11:00 | NUR ---
PT'S POTASSIUM IS 3.4 UNABLE TO ADMINISTERED K-DUR PT IS NPO, HE FAILED SWALLOW TEST. DOCTOR RECOMMENDED TO HOLD PO MEDICATIONS.
--- NOTE | 2021-02-11 12:00 | NUR ---
PT'S FAMILY TRIED TO FEED THE PT, HE FAILED TO SWALLOW. FAMILY DID SHAVE FOR THE PT. PT IS IN THE BED.
--- NOTE | 2021-02-11 14:00 | NUR ---
CHANGED PT [place]IL[place] PILLOW CASE, JASPREET CARE GIVEN. PT WAS COLD TO TOUCH WARM BLANKET PROVIDED.
--- NOTE | 2021-02-11 15:00 | NUR ---
ASSESS PT SURGICAL WOUND AT THE BACK AND CLEANSED PER ORDER COVER WITH DRY STERILE DRESSING. THERE WAS SMALL AMOUNT OF DRAINAGE. WILL CONTINUE TO ASSESS PT.
--- NOTE | 2021-02-11 15:41 | NUR ---
02/11/21 RD FOLLOW UP COMPLETED PLEASE REFER TO NUTRITION ASSESSMENT UNDER CARE ACTIVITY FOR ESTIMATED NUTRITIONAL NEEDS. 1. CURRENTLY NPO 2. RECOMMEND IV DEXTROSE FOR GLUCOSE OF 73 3. RECOMMEND PEG PLACEMENT FOR INADEQUATE PO INTAKE. CONSIDER JEVITY 1.2 @ 50 ML/HR WITH FREE WATER FLUSH OF [address] TO FOLLOW-UP 2-3 DAYS, HIGH RISK OLIVIA HILL RD
--- NOTE | 2021-02-11 17:13 | NUR ---
ADMINISTERED SCHEDULE MEDICATION PER MD ORDER. PT IS SLEEPING NO S/S OF SOB NOTED.
--- NOTE | 2021-02-11 18:02 | NUR ---
PT VOIDED CHANGED THE PT AND ASSESS THE PICC LINE COVER, PT WAS TRYING TO PULL IT OUT. REDIRECTED PT AND EXPLAINED NOT TO PULL IT. WILL MAKE FREQUENT ROUNDS.
--- NOTE | 2021-02-11 19:30 | NUR ---
RECEIVED BEDSIDE ENDORSEMENT FROM AM SHIFT RN. PT HAS NS 50ML/HR RUNNING, A&O X0, MIDLINE RIGHT UPPER ARM - DOUBLE LUMEN. WOUND MID BACK, ROOM AIR, SAFETY MEASURES IN PLACE, WILL CONTINUE TO MONITOR.
--- NOTE | 2021-02-11 19:31 | NUR ---
endorsed the night nurse for continuity of care. pt is stable
[2021-02-11 20:00] VITALS: BP 110/65
--- NOTE | 2021-02-11 21:28 | NUR ---
ADMINISTERED SCHEDULED MEDS, TOLERATED WELL, NO ADVERSE REACTIONS, WILL CONTINUE TO MONITOR.
--- NOTE | 2021-02-12 | NUR ---
PATIENT IS IN BED ASLEEP, KEPT COMFORTABLE, SAFETY MEASURES IN PLACE, ON ROOM AIR, WILL CONTINUE TO MONITOR.
[2021-02-12] MEDS: SKINTEGRITY HYDROGEL TP SCH ×2 (00:31→17:30)
[2021-02-12] MEDS: NACL 0.45% 1,000 ML IV SCH ×2 (00:31→21:30)
--- NOTE | 2021-02-12 02:01 | NUR ---
PATIENT IS IN BED KEPT COMFORTBALE, SAFETY MEASURES IN PLACE, NO SIGNS OF DISTRESS, WILL CONTINUE TO MONITOR.
[2021-02-12 04:00] VITALS: BP 98/60
[2021-02-12 04:40] LABS: BASOPHILS # (AUTO) 0.1 K/uL (0.00-0.22); BASOPHILS % (AUTO) 1.1 % (0.0-2.0); EOSINOPHILS % (AUTO) 0.2 % (0.0-4.0); HEMATOCRIT 36.2 % (36-52); HEMOGLOBIN 11.2 g/dL (12.0-18.0); LYMPHOCYTES # (AUTO) 1.3 K/uL (2.0-11.5); LYMPHOCYTES % (AUTO) 26.5 % (20.5-51.1); MEAN CORPUSCULAR HEMOGLOBIN 22 pg (27-31); MEAN CORPUSCULAR HGB CONC 31 g/dL (33-37); MEAN CORPUSCULAR VOLUME 70.8 fL (80-94); MONOCYTES # (AUTO) 0.9 K/uL (0.8-1.0); MONOCYTES % (AUTO) 17.5 % (1.7-9.3); NEUTROPHILS # (AUTO) 2.7 K/uL (1.8-7.7); NEUTROPHILS % (AUTO) 54.7 % (42.2-75.2); PLATELET COUNT (AUTO) 240 K/uL (140-450); RED BLOOD CELL COUNT(AUTO) 5.11 MIL/uL (4.20-6.10); RED CELL DISTRIBUTION WIDTH 20.1 % (11.6-13.7)
--- NOTE | 2021-02-12 05:40 | NUR ---
CLEANED WOUND AND CHANGED DRESSING ON PATIENTS MID LOWER BACK. DRAINAGE FROM PREVIOUS DRESSING WAS MINIMAL, NO ODOR, SEROSANGUINEOUS. WOUND ITSELF IS PINK, DRESSING IS NOW DRY AND INTACT.
[2021-02-12] MEDS ORDERED: ceFAZolin 1,000 MG VIAL ONE (07:23)
[2021-02-12] MEDS ORDERED: MIDAZOLAM 5 MG/5 ML VIAL ONE (07:23)
[2021-02-12] MEDS ORDERED: fentaNYL citrate 0.05 MG/ML VIAL ONE (07:23)
[2021-02-12] MEDS ORDERED: FLUMAZENIL 0.5 MG/5 ML VIAL IVP ONE (07:31)
[2021-02-12] MEDS ORDERED: NALOXONE 0.4 MG/ML VIAL ONE (07:32)
--- NOTE | 2021-02-12 07:35 | NUR ---
PASSED ON BEDSIDE ENDORSEMENT TO AM SHIFT RN. SCHEDULED MEDS AND INTERVENTIONS COMPLETED. PATIENT IS IN STABLE CONDITION.
--- NOTE | 2021-02-12 08:32 | NUR ---
Patient noted resting, safety co measures in place with all 4 rails up as seizure precautions, shows no signs of pain and remains in bed with no further needs.
[2021-02-12] MEDS ORDERED: MIDAZOLAM 2 MG/2 ML VIAL IVP ONE (08:40)
[2021-02-12] MEDS ORDERED: fentaNYL citrate 0.05 MG/ML VIAL IVP ONE (08:40)
[2021-02-12] MEDS: levETIRAcetam 2,000 MG in NACL 0.9% 100 ML IV SCH ×2 (09:57→21:00)
[2021-02-12] MEDS: PHENYTOIN 100 MG/2 ML VIAL IVP SCH ×3 (10:02→17:42)
[2021-02-12] MEDS: PANTOPRAZOLE 40 MG INJ VIAL IVP SCH (10:03)
[2021-02-12] MEDS: VITAMIN D 400 IU TAB PO SCH (10:04)
[2021-02-12] MEDS: LORATADINE 10 MG TAB PO SCH (10:04)
[2021-02-12] MEDS: DOCUSATE SODIUM 250 MG GELCAP PO SCH (10:05)
[2021-02-12] MEDS: POLYETHYLENE GLYCOL 17 GM/PKT PO SCH ×2 (10:06→21:00)
[2021-02-12] MEDS: ZINC SULF 220 MG CAP PO SCH (10:07)
[2021-02-12] MEDS: QUEtiapine FUMARATE 100 MG TAB PO SCH ×2 (10:07→21:00)
[2021-02-12] MEDS: ASCORBIC ACID 500 MG TAB PO SCH (10:07)
[2021-02-12 10:11] LABS: ALBUMIN 3.4 g/dL (3.4-5.0); ANION GAP 24.6 (8-16); MAGNESIUM 1.9 mg/dL (1.8-2.4); POTASSIUM 3.6 mmol/L (3.5-5.1); TOTAL BILIRUBIN 0.6 mg/dL (0.0-1.0)
--- NOTE | 2021-02-12 10:35 | NUR ---
RECEIVED TORB TO START TUBE FEEDING FROM DR. RAMOS.
[2021-02-12 12:00] VITALS: BP 115/83
--- NOTE | 2021-02-12 13:52 | NUR ---
WOUND CARE RE-EVALUATION NOTE: - MID BACK PARTIAL THICKNESS SKIN LOSS 8.5X7X0.1CM, WOUND BED 100% GRANULATING TISSUE, MOIST GRANULATING, NO ODOR, WOUND EDGE ATTACHED JASPREET-WOUND SKIN INTACT. -SURGICAL WOUND PEG TUBE INSERTION, TUBE SECURED WITH SUTURES, JASPREET-STOMA SKIN DRY ,INTACT, GT SITE SMALL AMOUNT SEROUS DRAINAGE. ABDOMINAL BINDER IN PLACE POC DISCUSSED WITH PRIMARY RN,WILL CONTINUE HYDROGEL ORDERED.
[2021-02-12 20:00] VITALS: BP 132/71
[2021-02-13] MEDS: SKINTEGRITY HYDROGEL TP SCH ×2 (00:54→16:10)
[2021-02-13 04:00] VITALS: BP 128/70
--- NOTE | 2021-02-13 06:11 | NUR ---
PT WAS GIVEN A BEDBATH LINEN WAS CHANGED POSITION CHANGED , VSS , NO PAIN NO SEZUIRES .
[2021-02-13 07:07] LABS: BASOPHILS % (AUTO) 0.5 % (0.0-2.0); EOSINOPHILS % (AUTO) 0.1 % (0.0-4.0); HEMATOCRIT 32.8 % (36-52); HEMOGLOBIN 10.5 g/dL (12.0-18.0); LYMPHOCYTES # (AUTO) 1.3 K/uL (2.0-11.5); LYMPHOCYTES % (AUTO) 18.9 % (20.5-51.1); MEAN CORPUSCULAR HEMOGLOBIN 23 pg (27-31); MEAN CORPUSCULAR HGB CONC 32 g/dL (33-37); MEAN CORPUSCULAR VOLUME 71.1 fL (80-94); MONOCYTES # (AUTO) 1.1 K/uL (0.8-1.0); NEUTROPHILS # (AUTO) 4.3 K/uL (1.8-7.7); NEUTROPHILS % (AUTO) 63.5 % (42.2-75.2); PLATELET COUNT (AUTO) 199 K/uL (140-450); RED BLOOD CELL COUNT(AUTO) 4.62 MIL/uL (4.20-6.10); RED CELL DISTRIBUTION WIDTH 20.4 % (11.6-13.7); WHITE BLOOD COUNT (AUTO) 6.8 K/uL (4.8-10.8)
[2021-02-13] MEDS: PANTOPRAZOLE 40 MG INJ VIAL IVP SCH (08:51)
[2021-02-13] MEDS: QUEtiapine FUMARATE 100 MG TAB PO SCH ×2 (08:52→21:57)
[2021-02-13] MEDS: VITAMIN D 400 IU TAB PO SCH (08:52)
[2021-02-13] MEDS: DOCUSATE SODIUM 250 MG GELCAP PO SCH (08:52)
[2021-02-13] MEDS: PHENYTOIN 100 MG/2 ML VIAL IVP SCH ×3 (08:52→18:43)
[2021-02-13] MEDS: LORATADINE 10 MG TAB PO SCH (08:52)
[2021-02-13] MEDS: ZINC SULF 220 MG CAP PO SCH (08:53)
[2021-02-13] MEDS: ASCORBIC ACID 500 MG TAB PO SCH (08:53)
[2021-02-13] MEDS: POLYETHYLENE GLYCOL 17 GM/PKT PO SCH ×2 (08:53→21:57)
[2021-02-13] MEDS: levETIRAcetam 2,000 MG in NACL 0.9% 100 ML IV SCH ×2 (08:54→18:43)
[2021-02-13 12:00] VITALS: BP 114/84
[2021-02-13] MEDS: DEXTROSE 5% 1,000 ML IV SCH (16:09)
[2021-02-13] MEDS: NACL 0.45% 1,000 ML IV SCH (18:44)
--- NOTE | 2021-02-13 19:20 | NUR ---
RECD REPORT FROM SHAAN CHAMBERLAIN RN. PATIENT RESTING IN BED, AWAKE, ALERT, APHASIC. RESPIRATION EVEN AND UNLABORED. IV OF D5 INFUSING AT 50 ML/HR, RIGHT UPPER MIDLINE DOUBLE LUMEN. GT FEEDING OF JEVITY 1.2 INFUSING AT 50 ML/HR, GT SITE DRY AND INTACT. SAFETY MEASURES ENFORCED. SIDE RAILS WITH PADS, BED IN THE LOWEST POSITION. NO APPEARANCE OF PAIN OR DISCOMFORT NOTED, FLACC -0.
--- NOTE | 2021-02-13 20:00 | NUR ---
PATIENT'S PLAN OF CARE WAS DISCUSSED AND REVIEWED WITH MOLDED GOODS OPERATOR: LOULOU CHASE.
--- NOTE | 2021-02-13 21:57 | NUR ---
RESIDUAL - 50 ML, TOLERATING GT FEEDING. SCHEDULED MEDICATIONS GIVEN VIA GT.
--- NOTE | 2021-02-13 23:00 | NUR ---
DIAPER CHANGED, REPOSITIONED WITH PILLOWS IN BED FOR COMFORT.
[2021-02-14] VITALS: BP 114/65
[2021-02-14] MEDS: SKINTEGRITY HYDROGEL TP SCH ×2 (01:00→13:08)
--- NOTE | 2021-02-14 01:00 | NUR ---
SLEEPING COMFORTABLY IN BED.
--- NOTE | 2021-02-14 04:00 | NUR ---
CLEANSED AND DIAPER CHANGED. BEDDINGS CHANGED. REPOSITIONED IN BED WITH PILLOWS FOR COMFORT.
--- NOTE | 2021-02-14 07:00 | NUR ---
CONDITION REMAIN STABLE. WILL ENDORSED TO AM SHIFT NURSE FOR CONTINUITY OF CARE.
[2021-02-14] MEDS: DEXTROSE 5% 1,000 ML IV SCH (07:30)
[2021-02-14 08:01] LABS: ANION GAP 11.9 (8-16); CARBON DIOXIDE 26.8 mmol/L (21-32); CREATININE 0.8 mg/dL (0.6-1.3)
[2021-02-14] MEDS: levETIRAcetam 2,000 MG in NACL 0.9% 100 ML IV SCH ×2 (09:39→21:38)
[2021-02-14] MEDS: DOCUSATE SODIUM 250 MG GELCAP PO SCH (09:40)
[2021-02-14] MEDS: LORATADINE 10 MG TAB PO SCH (09:40)
[2021-02-14] MEDS: POLYETHYLENE GLYCOL 17 GM/PKT PO SCH ×2 (09:40→21:58)
[2021-02-14] MEDS: PANTOPRAZOLE 40 MG INJ VIAL IVP SCH (09:40)
[2021-02-14] MEDS: ZINC SULF 220 MG CAP PO SCH (09:40)
[2021-02-14] MEDS: ASCORBIC ACID 500 MG TAB PO SCH (09:41)
[2021-02-14] MEDS: VITAMIN D 400 IU TAB PO SCH (09:41)
[2021-02-14] MEDS: QUEtiapine FUMARATE 100 MG TAB PO SCH ×2 (09:41→21:59)
[2021-02-14] MEDS: PHENYTOIN 100 MG/2 ML VIAL IVP SCH ×3 (09:41→17:26)
[2021-02-14 10:18] LABS: POTASSIUM 2.7 mmol/L (3.5-5.1)
[2021-02-14] MEDS: NACL 0.45% 1,000 ML IV SCH (13:08)
[2021-02-14] MEDS ORDERED: POTASSIUM CHLORIDE 40 MEQ, LIDOCAINE MPF 1% 25 MG in NACL 0.9% 250 ML IV SCH (14:00)
--- NOTE | 2021-02-14 15:39 | NUR ---
02/14/21 RD FOLLOW UP COMPLETED PLEASE REFER TO NUTRITION PROGRESS NOTE UNDER CARE ACTIVITY FOR ESTIMATED NUTRITION NEEDS. RD RECOMMENDATIONS: 1. CONTINUE JEVITY 1.2 AT 50 ML/HR WITH 150 ML FREE WATER FLUSH Q4H. 2. CONTINUE LUL BID. 3. RD TO FOLLOW-UP 2-3 DAYS, HIGH RISK PATRICA BASSETT, RD
--- NOTE | 2021-02-14 18:45 | NUR ---
PATIENT A&OX0, NONVERBAL. PATIENT IV INTACT, TUBE FEEDING RUNNING WITHOUT ANY COMPLICATIONS, TUBE FEEDING SITE INTACT. NO S/S OF DISTRESS OR DISCOMFORT AT THIS TIME. NO COMPLAINTS OF PAIN OR SIGNS OF SOB. ALL NEEDS HAVE BEEN MET AT THIS TIME.
--- NOTE | 2021-02-14 19:20 | NUR ---
RECD. REPORT FROM JAMAAL HAYES. PATIENT IS RESTING IN BED, AWAKE, ALERT,APHASIC, WITH MENTAL DISABILITY. RESPIRATION EVEN AND UNLABORED. IV OF D5 INFUSING AT 50 ML/HR, RIGHT UPPER ARM MIDLINE. GT FEEDING OF JEVITY 1.2 INFUSING AT 50 ML/HR. SAFETY MEASURES ENFORCED. SIDE RAILS WITH PADS, BED IN THE LOWEST POSITION. NO APPEARANCE OF PAIN/DISCOMFORT NOTED, FLACC -0.
[2021-02-14 20:00] VITALS: BP 112/66
--- NOTE | 2021-02-14 21:00 | NUR ---
CLEANSED PATIENT, DIAPER CHANGED, BEDDINGS CHANGED. MADE COMFORTABLE IN BED.
--- NOTE | 2021-02-14 21:46 | NUR ---
Patient's Plan of Care was discussed and reviewed with RESEARCH ANIMAL FACILITY SUPERVISOR: Liudmila Robertson
--- NOTE | 2021-02-15 | NUR ---
SLEEPING COMFORTABLY IN BED, RESPIRATION EVEN AND UNLABORED.
[2021-02-15] MEDS: SKINTEGRITY HYDROGEL TP SCH ×2 (01:24→12:38)
[2021-02-15 04:00] VITALS: BP 116/64
[2021-02-15] MEDS: DEXTROSE 5% 1,000 ML IV SCH ×2 (04:00→23:30)
--- NOTE | 2021-02-15 04:30 | NUR ---
DIAPER CHANGED. REPOSITIONED IN BED, HOB ELEVATED 35 DEGREES/
--- NOTE | 2021-02-15 07:20 | NUR ---
RECEIVED REPORT FROM NIGHT NURSE, PT IS ON SEIZURES PRECAUTION, APHASIC, HX OF MENTAL DELAY. PT HAS G TUBE, INCONTINENT. PICC LINE ON RIGHT UPPER ARM. PT IS SLEEPING IN THE BED NO SOB NOTED. SIDE RAILS ARE PADDED. PLAN OF CARE DISCUSSED WILL CONTINUE TO FOLLOW.
--- NOTE | 2021-02-15 07:35 | NUR ---
CONDITION REMAIN STABLE ENDORSED TO AM SHIFT NURSE FOR CONTINUITY OF CARE.
--- NOTE | 2021-02-15 08:04 | NUR ---
PT HAS POTASSIUM 2.7 NOTIFIED MD AWAITING FOR FURTHER ORDERS.
[2021-02-15] MEDS: LORATADINE 10 MG TAB PO SCH (08:58)
[2021-02-15] MEDS: ASCORBIC ACID 500 MG TAB PO SCH (08:59)
[2021-02-15] MEDS: PANTOPRAZOLE 40 MG INJ VIAL IVP SCH (08:59)
[2021-02-15] MEDS: ZINC SULF 220 MG CAP PO SCH (08:59)
[2021-02-15] MEDS: QUEtiapine FUMARATE 100 MG TAB PO SCH ×2 (08:59→21:00)
[2021-02-15] MEDS: VITAMIN D 400 IU TAB PO SCH (08:59)
[2021-02-15] MEDS: PHENYTOIN 100 MG/2 ML VIAL IVP SCH ×3 (09:00→16:39)
[2021-02-15] MEDS: DOCUSATE SODIUM 250 MG GELCAP PO SCH (09:01)
[2021-02-15] MEDS: levETIRAcetam 2,000 MG in NACL 0.9% 100 ML IV SCH ×2 (09:02→21:00)
[2021-02-15] MEDS: POLYETHYLENE GLYCOL 17 GM/PKT PO SCH ×2 (09:02→21:00)
[2021-02-15] MEDS: NACL 0.45% 1,000 ML IV SCH (09:23)
[2021-02-15] MEDS ORDERED: POTASSIUM CHLORIDE 40 MEQ, LIDOCAINE MPF 1% 25 MG in NACL 0.9% 250 ML IV ONE ×2 (11:50→14:30)
[2021-02-15 12:00] VITALS: BP 96/59
--- NOTE | 2021-02-15 12:30 | NUR ---
LAB CAME TO DRAW BLOOD SAMPLE, PT WAS AGITATED, UNABLE TO COLLECT THE SAMPLE.
[2021-02-15 13:42] LABS: ANION GAP 7.5 (8-16); CARBON DIOXIDE 31.1 mmol/L (21-32); CREATININE 0.7 mg/dL (0.6-1.3)
[2021-02-15 13:47] LABS: POTASSIUM 2.6 mmol/L (3.5-5.1)
--- NOTE | 2021-02-15 13:50 | NUR ---
RECEIVED POTASSIUM RESULT 2.6 NOTIFIED
--- NOTE | 2021-02-15 14:04 | NUR ---
RECEIVED ORDER FOR POTASSIUM VIA IV, CALLED PHARMACY TO SEND IT. PHARMACIST STATED THAT IT WILL BE SENT SHORTLY. WILL ADMINISTERED WHEN RECEIVED.
--- NOTE | 2021-02-15 15:02 | NUR ---
ADMINISTERED POTASSIUM VIA PER MD ORDER, RUNNING AT 68 ML/HR. WILL CONTINUE TO ASSESS THE PT.
--- NOTE | 2021-02-15 15:30 | NUR ---
CHANGED PT'S TUBE FEEDING BAG LAST BAG WAS EMPTY. G TUBE IN PATENT, 10 ML RESIDUAL NOTED. WILL CONTINUE TO MONITOR PT.
--- NOTE | 2021-02-15 16:43 | NUR ---
ADMINISTERED SCHEDULE MEDICATIONS PER MD ORDER, PT IS IN THE BED, NO SOB NOTED, HOB IS ELEVATED. WILL CONTINUE TO MONITOR PT.
--- NOTE | 2021-02-15 19:30 | NUR ---
RECEIVED REPORT FROM ERIKA HINTON FOR CONTINUITY OF CARE. PT NON-VERBAL, AA TO VERBAL/TACTILE STIMULI. NO APPARENT S/S OF ACUTE DISTRESS. BREATHING EVEN AND UNLABORED ON RA WITH O2 SAT OF 95%. R UA DL PICC INTACT/PATENT WITH D5@50ML/HR. G-TUBE INTACT/PATENT WITH JEVITY 1.2@50ML/HR. POC AND WHITE COMMUNICATION BOARD UPDATED. BED IN LOW/LOCKED POSITION. CALL LIGHT WITHIN REACH. PT ENCOURAGED TO CALL FOR ANY NEEDS/ASSISTANCE. WILL CONTINUE TO MONITOR.
--- NOTE | 2021-02-15 19:33 | NUR ---
ENDORSED THE NIGHT NURSE CONTINUITY OF CARE. PT IS STABLE.
[2021-02-15 20:00] VITALS: BP 103/56
[2021-02-15] MEDS ORDERED: POTASSIUM CHLORIDE 10 MEQ TABER PO SCH (21:00)
[2021-02-16] MEDS: SKINTEGRITY HYDROGEL TP SCH ×2 (01:35→12:28)
[2021-02-16 04:00] VITALS: BP 105/74
[2021-02-16] MEDS: NACL 0.45% 1,000 ML IV SCH (05:30)
--- NOTE | 2021-02-16 06:58 | NUR ---
REPORT GIVEN TO JAMIE HINTON FOR CONTINUITY OF CARE. PT SITTING UP AA. NO APPARENT S/S OF ACUTE DISTRESS. BREATHING EVEN AND UNLABORED. BED IN LOW/LOCKED POSITION. CALL LIGHT WITHIN REACH. ALL NEEDS MET AT THIS TIME.
--- NOTE | 2021-02-16 08:00 | NUR ---
NURSE REPORT OBTAINED REPORT FROM NIGHT NURSE ENEDINA AT 0730 AND THIS NURSE ASSUMED CARE. VSS. AFEB. RECEIVED PATIENT ASLEEP WITH TUBE FEEDING OF JEVITY 1.2 AT 50 ML/HR. WATER BOLUS OF 150 ML EVERY 4 HR. IV D5W INFUSING AT 50 ML/HR INTO KAUR PICC. NEEDS TOTAL ASSITANCE IN CARE.
[2021-02-16] MEDS: levETIRAcetam 2,000 MG in NACL 0.9% 100 ML IV SCH ×2 (09:43→21:57)
[2021-02-16] MEDS: PHENYTOIN 100 MG/2 ML VIAL IVP SCH ×3 (09:44→16:07)
[2021-02-16] MEDS: PANTOPRAZOLE 40 MG INJ VIAL IVP SCH (09:44)
[2021-02-16] MEDS: VITAMIN D 400 IU TAB PO SCH (09:44)
[2021-02-16] MEDS: DOCUSATE SODIUM 250 MG GELCAP PO SCH (09:44)
[2021-02-16] MEDS: LORATADINE 10 MG TAB PO SCH (09:44)
[2021-02-16] MEDS: POLYETHYLENE GLYCOL 17 GM/PKT PO SCH ×2 (09:45→21:50)
[2021-02-16] MEDS: QUEtiapine FUMARATE 100 MG TAB PO SCH ×2 (09:45→21:41)
[2021-02-16] MEDS: ASCORBIC ACID 500 MG TAB PO SCH (09:45)
[2021-02-16] MEDS: ZINC SULF 220 MG CAP PO SCH (09:46)
--- NOTE | 2021-02-16 11:50 | NUR ---
RECEIVED REPORT FROM JAMIE DAY SHIFT NURSE FOR CONTINUITY OF CARE. PT IS APHASIC AND BEDBOUND. ON RA WITH BREATHING UNLABORED. SR ON TELE MONITOR. G TUBE FEEDING IN PLACE. PT IS INCONTINENT WITH DRY DIAPER IN PLACE. WOUND ON BACK WITH DRESSING INTACT. PICC LINE IN THE RIGHT UPPER ARM RUNNING FLUIDS ORDERED. PT IS STABLE AT THIS TIME. PLAN OF CARE DISCUSSED.
--- NOTE | 2021-02-16 11:50 | NUR ---
NURSE REPORT REPORT GIVEN TO OTHER DAY SHIFT NURSE SERGE TO ASSUME CARE OF PATIENT. SBAR GIVEN AND ALL QUESTIONS ASKED. JAMIE MILLER
[2021-02-16 12:00] VITALS: BP 98/61
--- NOTE | 2021-02-16 12:11 | NUR ---
MESSAGED DR. GAINES TO INFORM HER THAT THE POTASSIUM LEVEL IS 2.6. DR. GAINES ORDERED 40 MEQ POTASSIUM ELIXIR ONE TIME DOSE. WILL ADMINISTER ONCE VERIFIED.
--- NOTE | 2021-02-16 12:22 | NUR ---
POTASSIUM CHLORIDE ELIXIR WAS GIVEN ORDERED BY DR. GAINES FOR POTASSIUM LEVEL OF 2.6.
[2021-02-16] MEDS ORDERED: POTASSIUM CHLORIDE 20% 40 MEQ/15 ML UDC GT SCH (12:30)
--- NOTE | 2021-02-16 14:30 | NUR ---
PT IS AWAKE, LAYING IN BED WITH EYES OPEN. ON RA WITH BREATHING UNLABORED. G TUBE IN PLACE INFUSING FEEDING ORDERED. NO PAIN AT THIS TIME. PT'S WOUND WAS ASSESSED, CLEANSED, AND NEW DRESSING WAS APPLIED. PT IS STABLE.
[2021-02-16 15:11] LABS: ALBUMIN 2.4 g/dL (3.4-5.0); ANION GAP 7.3 (8-16); CARBON DIOXIDE 31.6 mmol/L (21-32); CREATININE 0.6 mg/dL (0.6-1.3); MAGNESIUM 2.6 mg/dL (1.8-2.4); POTASSIUM 3.9 mmol/L (3.5-5.1); TOTAL BILIRUBIN 0.3 mg/dL (0.0-1.0)
--- NOTE | 2021-02-16 15:13 | NUR ---
02/16/21 RD FOLLOW UP COMPLETED PLEASE REFER TO NUTRITION ASSESSMENT UNDER CARE ACTIVITY FOR ESTIMATED NUTRITIONAL NEEDS. 1. CONTINUE JEVITY 1.2 @ 50 ML/HR WITH FREE WATER FLUSH OF 150 ML Q4H WITH LUL BID -THIS IS PROVIDING 1440 KCAL/DAY AND 53 GM OF PROTEIN/DAY. MEETING ADEQUATE NEEDS OF ESTIMATED KCAL AND PROTEIN NEEDS. 2. RD TO FOLLOW-UP 2-3 DAYS, HIGH RISK OLIVIA HILL RD
[2021-02-16 16:00] VITALS: BP 113/69
--- NOTE | 2021-02-16 16:30 | NUR ---
PT WAS CHANGED HE VOIDED IN HIS DIAPER. URINE WAS CLEAR AND YELLOW IN COLOR. PT TOLERATED MOVEMENT WELL. PT IS AWAKE IN SEMI FOWLERS POSITION. NO DISTRESS NOTED.
--- NOTE | 2021-02-16 18:15 | NUR ---
G TUBE FEEDING WAS CHANGED. DRESSING AROUND TUBING WAS CHANGED WELL. G TUBE RESIDUAL IS LESS THAN 5 ML. FLACC 0. PT DOES NOT APPEAR TO BE IN ANY DISTRESS. WILL CONTINUE TO MONITOR.
--- NOTE | 2021-02-16 19:10 | NUR ---
RECEIVED ENDORSEMENT AT BEDSIDE FROM AM NURSE. PATIENT IS AWAKE. NO ACUTE DISTRESS NOTED. IVF D5 INFUSING AT 50ML ON THE RIGHT UPPER ARM PICC LINE. G-TUBE FEEDING JEVITY 1.2 RUNNING AT 50 ML TOLERATING WELL. ALL SAFETY PRECAUTIONS ARE IN PLACE. CALL LIGHT WITHIN REACH.
--- NOTE | 2021-02-16 19:10 | NUR ---
ENDORSED PT TO [facility] NURSE FOR CONTINUITY OF CARE. PT IS STABLE. PLAN OF CARE DISCUSSED.
[2021-02-16] MEDS: DEXTROSE 5% 1,000 ML IV SCH (19:30)
--- NOTE | 2021-02-16 22:02 | NUR ---
SCHEDULED MEDICATIONS GIVEN ORDERED.
[2021-02-17] VITALS: BP 109/62
[2021-02-17] MEDS: SKINTEGRITY HYDROGEL TP SCH ×2 (01:00→13:31)
[2021-02-17] MEDS: NACL 0.45% 1,000 ML IV SCH (01:30)
--- NOTE | 2021-02-17 02:30 | NUR ---
PATIENT IS KEPT CLEAN AND DRY. NO SOB NOTED.
--- NOTE | 2021-02-17 07:15 | NUR ---
ENDORSED TO AM NURSE FOR CONTINUITY OF CARE.
[2021-02-17] MEDS ORDERED: POTASSIUM CHLORIDE 20% 40 MEQ/15 ML UDC GT SCH (09:00)
[2021-02-17] MEDS: levETIRAcetam 2,000 MG in NACL 0.9% 100 ML IV SCH (09:00)
--- NOTE | 2021-02-17 09:00 | NUR ---
MEDICATIONS GIVEN PER MD ORDER. PT EDUCATED ,, PT UNABLE TO VERBALIZE UNDERSTANDING DUE TO CONDITIONS. BREATHING IS SYMMETRICAL AND UNLABORED ALL SAFETY MEASURES IN PLACE.
[2021-02-17] MEDS: POLYETHYLENE GLYCOL 17 GM/PKT PO SCH (10:06)
[2021-02-17] MEDS: ZINC SULF 220 MG CAP PO SCH (10:08)
[2021-02-17] MEDS: DOCUSATE SODIUM 250 MG GELCAP PO SCH (10:09)
[2021-02-17] MEDS: QUEtiapine FUMARATE 100 MG TAB PO SCH (10:09)
[2021-02-17] MEDS: LORATADINE 10 MG TAB PO SCH (10:10)
[2021-02-17] MEDS: ASCORBIC ACID 500 MG TAB PO SCH (10:10)
[2021-02-17] MEDS: VITAMIN D 400 IU TAB PO SCH (10:10)
[2021-02-17] MEDS: PHENYTOIN 100 MG/2 ML VIAL IVP SCH ×2 (10:11→13:34)
[2021-02-17] MEDS: PANTOPRAZOLE 40 MG INJ VIAL IVP SCH (10:11)
[2021-02-17 11:58] LABS: ANION GAP 11.9 (8-16); CARBON DIOXIDE 30.9 mmol/L (21-32); CREATININE 0.6 mg/dL (0.6-1.3); POTASSIUM 3.8 mmol/L (3.5-5.1)
[2021-02-17 12:00] VITALS: BP 104/77
[2021-02-17] MEDS ORDERED: LEVE1000 PO (12:24)
[2021-02-17] MEDS ORDERED: PHEN50CT5 PO (12:24)
--- NOTE | 2021-02-17 12:30 | NUR ---
REPORT GIVEN TO BILL FROM [facility], RN VERBALIZED UNDERSTANDING FOR CONTINUITY OF CARE.
--- NOTE | 2021-02-17 13:00 | NUR ---
TEMP 100.5 PRN MEDICATION GIVE. PT TOLERATED WELL.
[2021-02-17] MEDS ORDERED: ACETAMINOPHEN 650 MG/20.3 ML UDC PO PRN (13:40)
--- NOTE | 2021-02-17 14:17 | NUR ---
TEMP REASSESSED 98.1
--- NOTE | 2021-02-17 15:12 | NUR ---
DIET CONSULT NOTE: PT CURRENTLY RECEIVING JEVITY 1.2 @ 50 ML/HR, FREE WATER FLUSH 150 ML Q 4 HRS, LUL BID. PT TOLERATING CURRENT FEEDS, MEETING ESTIMATED KCAL AND PRO NEEDS ORDERED, CURRENT NUTRITION SUPPORT ORDER IS APPROPRIATE FOR DISCHARGE. HARSHAL ALEJANDRA RD
[2021-02-17] MEDS: DEXTROSE 5% 1,000 ML IV SCH (15:30)
--- NOTE | 2021-02-17 15:42 | NUR ---
TALKED TO CAREGIVER MATT. SHE STATES SHE WILL BE PICKING HIM UP IN TEN MINUTES
--- NOTE | 2021-02-17 16:05 | NUR ---
PT DISCHARGE INSTRUCTIONS COMPLETE WITH CAREGIVER AT BEDSIDE. MIDLINE REMOVED CANULA INTACT. PT TOLERATED WELL. PT LEFT VIA WHEEL CHAIR. IN STABLE CONDITION
--- NOTE | 2021-02-17 17:21 | NUR ---
PRN INSULIN GIVEN PER MD ORDER. PT REMAINS NPO. ALL SAFETY MEASURES IN PLACE. HD NURSE AT BEDSIDE. Addendum: 02/17/21 at 1722 by [place] RN RN WRONG PT.
== END 2021-02-17 16:08 | DRG 137 ==
LOC: MED 21:56 → MTU 02-03 00:15
PROVIDERS: ADMIT Hospitalist; ATTEND Hospitalist
PROC: 4B00XVZ Measurement of Central Nervous Stimulator, External Approach (ICD-10-PCS; principal; 2021-02-05)
PROC: 0DH63UZ Insertion of Feeding Device into Stomach, Percutaneous Approach (ICD-10-PCS; 2021-02-12)
DX: J69.0 Pneumonitis due to inhalation of food and vomit (principal); N17.9 Acute kidney failure, unspecified; E87.0 Hyperosmolality and hypernatremia; G40.909 Epilepsy, unspecified, not intractable, without status epilepticus; N39.0 Urinary tract infection, site not specified; Z20.822 Contact with and (suspected) exposure to COVID-19; E86.0 Dehydration; K21.9 Gastro-esophageal reflux disease without esophagitis; M89.8X2 Other specified disorders of bone, upper arm; G25.81 Restless legs syndrome; F79 Unspecified intellectual disabilities; F39 Unspecified mood [affective] disorder; R62.50 Unspecified lack of expected normal physiological development in childhood; Z79.899 Other long term (current) drug therapy
CPT/HCPCS: 36415; 70450; 71045; 80048; 80053; 80184; 80185; 80299; 81001; 83735; 84100; 85025; 87040; 87070; 87081; 87086; 92610; 92700; 93005; 96365; 96367; 99291; A6248; C9113; J0690; J1165; J1953; J2001; J2185; J2250; J2310; J2543; J2560; J3010; J3370; J3475; J3480; J3490; J7030; J7060; Q0092

== ENCOUNTER 2021-03-27 22:08 | Inpatient (IN) | payer MEDICAID, SELFPAY ==
[~2021-03-27] VITALS: Ht 152.4 cm; Wt 71.2 kg
[2021-03-27 22:08] VITALS: BP 99/58
[~2021-03-27 22:08] MED LIST: ASCO-786 PO; CALC-751 PO; DOCU-299 PO; FAMO-90 PO; LAM200 PO; LEVE1000 PO; LORA10TA19 PO; MELA1TAB15 PO; PANT40EC56 PO; PHEN50CT5 PO; PHEN60TA PO; POLY17PD65 PO; QUET100T PO; ROPI0.5T6 PO; ZINC220T4 PO; ZONI100C22 PO
[2021-03-27] MEDS ORDERED: NACL 0.9% 500 ML IV ONE ×2 (22:30→23:20)
[2021-03-27] MEDS ORDERED: ACETAMINOPHEN 650 MG/20.3 ML UDC GT ONE (22:30)
[2021-03-27] MEDS ORDERED: NACL 0.9% 1,000 ML IV ONE (23:20)
[2021-03-27] MEDS ORDERED: PIPERACILLIN/TAZOBACTAM 3.375 GM in DEXTROSE 5% 50 ML IV ONE (23:20)
[2021-03-27 23:51] LABS: BASOPHILS # (AUTO) 0.1 K/uL (0.00-0.22); BASOPHILS % (AUTO) 0.5 % (0.0-2.0); EOSINOPHILS # (AUTO) 0.2 K/uL (0-0.4); EOSINOPHILS % (AUTO) 1.5 % (0.0-4.0); HEMATOCRIT 32.7 % (36-52); HEMOGLOBIN 10.1 g/dL (12.0-18.0); LYMPHOCYTES # (AUTO) 1.5 K/uL (2.0-11.5); LYMPHOCYTES % (AUTO) 14.2 % (20.5-51.1); MEAN CORPUSCULAR HEMOGLOBIN 23 pg (27-31); MEAN CORPUSCULAR HGB CONC 31 g/dL (33-37); MEAN CORPUSCULAR VOLUME 73.1 fL (80-94); MONOCYTES # (AUTO) 1.2 K/uL (0.8-1.0); MONOCYTES % (AUTO) 11.9 % (1.7-9.3); NEUTROPHILS # (AUTO) 7.5 K/uL (1.8-7.7); NEUTROPHILS % (AUTO) 71.9 % (42.2-75.2); PLATELET COUNT (AUTO) 268 K/uL (140-450); RED BLOOD CELL COUNT(AUTO) 4.48 MIL/uL (4.20-6.10); RED CELL DISTRIBUTION WIDTH 16.4 % (11.6-13.7); WHITE BLOOD COUNT (AUTO) 10.5 K/uL (4.8-10.8)
[2021-03-28 00:14] LABS: ALBUMIN 2.6 g/dL (3.4-5.0); ANION GAP 14.9 (8-16); CREATININE 0.6 mg/dL (0.6-1.3); TOTAL BILIRUBIN 0.2 mg/dL (0.0-1.0)
[2021-03-28 00:22] LABS: CREATINE KINASE MB 0.1 ng/mL (0-3.6)
[2021-03-28 00:23] LABS: APPEARANCE,URINE CLEAR (CLEAR); BILIRUBIN,URINE NEGATIVE (NEGATIVE); BLOOD, URINE 1+ (NEGATIVE); COLOR,URINE YELLOW (YELLOW); LEUKOCYTE ESTERASE ,URINE NEGATIVE (NEGATIVE); NITRITE, URINE NEGATIVE (NEGATIVE); PH,URINE 6.5 (5.0-9.0); UGLUCOSE NEGATIVE (NEGATIVE)
[2021-03-28 00:23] LABS: POTASSIUM 2.9 mmol/L (3.5-5.1)
[2021-03-28] MEDS ORDERED: POTASSIUM CHLORIDE 20% 40 MEQ/15 ML UDC GT ONE (00:30)
[2021-03-28 00:34] LABS: RBC,URINE 20-50 /HPF (0-5); WBC,URINE 0-5 /HPF (0-5)
[2021-03-28] MEDS ORDERED: KCL 20 MEQ/WATER INJ PREMIX 100 ML IV ONE (00:35)
[2021-03-28] MEDS ORDERED: PIPERACILLIN/TAZOBACTAM 3.375 GM VIAL IV ONE ×4 (00:39→23:26)
[2021-03-28] MEDS ORDERED: MORPHINE SULFATE 2 MG/ML SYR IVP PRN (09:05)
[2021-03-28] MEDS ORDERED: POTASSIUM CHLORIDE 10 MEQ TABER PO PRN (09:05)
[2021-03-28] MEDS ORDERED: ACETAMINOPHEN 325 MG TAB PO PRN (09:05)
[2021-03-28] MEDS ORDERED: HYDROcodone/APAP 5/325 MG 1 TAB TAB PO PRN (09:05)
[2021-03-28] MEDS ORDERED: ONDANSETRON 4 MG/2 ML VIAL IM/IVP PRN (09:05)
[2021-03-28] MEDS ORDERED: DOCUSATE SODIUM 100 MG GELCAP PO PRN (09:05)
[2021-03-28] MEDS ORDERED: ZOLPIDEM 5 MG TAB PO PRN (09:05)
[2021-03-28] MEDS ORDERED: MAG SULF 2000 MG/WATER PREMIX 50 ML IV PRN (09:05)
[2021-03-28] MEDS ORDERED: LORazepam 2 MG/ML VIAL IM/IVP PRN (09:05)
[2021-03-28] MEDS: PIPERACILLIN/TAZOBACTAM 3.375 GM in DEXTROSE 5% 50 ML IV SCH ×3 (09:27→21:00)
[2021-03-28] MEDS ORDERED: MELATONIN 3 MG TAB PO PRN (09:40)
[2021-03-28] MEDS: NACL 0.9% 1,000 ML IV SCH ×2 (10:12→23:32)
[2021-03-28 10:20] LABS: BASOPHILS % (AUTO) 0.2 % (0.0-2.0); EOSINOPHILS # (AUTO) 0.2 K/uL (0-0.4); EOSINOPHILS % (AUTO) 1.5 % (0.0-4.0); HEMOGLOBIN 10.5 g/dL (12.0-18.0); LYMPHOCYTES # (AUTO) 1.2 K/uL (2.0-11.5); LYMPHOCYTES % (AUTO) 9.5 % (20.5-51.1); MEAN CORPUSCULAR HEMOGLOBIN 22 pg (27-31); MEAN CORPUSCULAR HGB CONC 30 g/dL (33-37); MEAN CORPUSCULAR VOLUME 73.9 fL (80-94); MONOCYTES # (AUTO) 1.2 K/uL (0.8-1.0); MONOCYTES % (AUTO) 9.1 % (1.7-9.3); NEUTROPHILS # (AUTO) 10.4 K/uL (1.8-7.7); NEUTROPHILS % (AUTO) 79.7 % (42.2-75.2); PLATELET COUNT (AUTO) 256 K/uL (140-450); RED BLOOD CELL COUNT(AUTO) 4.73 MIL/uL (4.20-6.10); RED CELL DISTRIBUTION WIDTH 16.6 % (11.6-13.7)
[2021-03-28 10:53] LABS: ANION GAP 12.4 (8-16); CARBON DIOXIDE 22.2 mmol/L (21-32); CREATININE 0.6 mg/dL (0.6-1.3); POTASSIUM 3.6 mmol/L (3.5-5.1)
[2021-03-28 11:16] LABS: CHOL/HDL RATIO 2.5 (1-4.5); MAGNESIUM 2.1 mg/dL (1.8-2.4); PHOSPHORUS 2.2 mg/dL (2.5-4.9); THYROID STIMULATING HORMONE 0.33 uIU/mL (0.34-3.74)
[2021-03-28 11:18] LABS: PROTHROMBIN TIME 10.7 secs (10.8-13.4)
[2021-03-28] MEDS ORDERED: [UNRECOGNIZED DRUG - REMARK] PO SCH ×2 (11:25→11:43)
[2021-03-28] MEDS ORDERED: MISC ORAL TAB PO SCH (11:28)
[2021-03-28] MEDS ORDERED: PHENYTOIN PO SCH (13:00)
[2021-03-28] MEDS: PHENYTOIN 100 MG/4 ML UDC PO SCH ×2 (13:37→17:18)
[2021-03-28] MEDS ORDERED: MELATONIN PO SCH (17:00)
[2021-03-28] MEDS: levETIRAcetam 500 MG TAB PO SCH (21:00)
[2021-03-28] MEDS: CALCIUM CARB/VIT-D 500 MG/200 IU 1 TAB PO SCH (21:00)
[2021-03-28] MEDS ORDERED: PHENOBARBITAL 64.8 MG PO SCH (21:00)
[2021-03-28] MEDS: rOPINIRole 0.25 MG TAB PO SCH (21:00)
[2021-03-28] MEDS: [UNRECOGNIZED DRUG - OTHER] PO SCH (21:00)
[2021-03-28] MEDS: QUEtiapine FUMARATE 100 MG TAB PO SCH (21:00)
[2021-03-28] MEDS ORDERED: VITAMIN D3 PO SCH (21:00)
[2021-03-28] MEDS: [UNRECOGNIZED DRUG - OTHER] PO SCH (21:00)
[2021-03-28] MEDS: POLYETHYLENE GLYCOL 17 GM/PKT PO SCH (21:00)
[2021-03-28] MEDS ORDERED: [UNRECOGNIZED DRUG - OTHER] PO SCH (21:00)
[2021-03-28] MEDS ORDERED: ZONISAMIDE 400 MG PO SCH (21:00)
[2021-03-28] MEDS ORDERED: CALCIUM CARBONATE PO SCH (21:00)
[2021-03-28] MEDS ORDERED: rOPINIRole 1 MG TAB PO SCH (21:00)
[2021-03-28] MEDS ORDERED: CRUSHER, PILL MC ONE (23:45)
[2021-03-29] MEDS: NACL 0.9% 1,000 ML IV SCH ×2 (01:45→18:10)
[2021-03-29 04:00] VITALS: BP 99/45
[2021-03-29] MEDS: PIPERACILLIN/TAZOBACTAM 3.375 GM in DEXTROSE 5% 50 ML IV SCH ×3 (04:48→20:42)
[2021-03-29 07:16] LABS: BASOPHILS % (AUTO) 0.5 % (0.0-2.0); EOSINOPHILS # (AUTO) 0.3 K/uL (0-0.4); HEMATOCRIT 32.3 % (36-52); HEMOGLOBIN 9.8 g/dL (12.0-18.0); LYMPHOCYTES # (AUTO) 1.3 K/uL (2.0-11.5); LYMPHOCYTES % (AUTO) 16.6 % (20.5-51.1); MEAN CORPUSCULAR HEMOGLOBIN 23 pg (27-31); MEAN CORPUSCULAR HGB CONC 30 g/dL (33-37); MEAN CORPUSCULAR VOLUME 74.3 fL (80-94); MONOCYTES # (AUTO) 0.7 K/uL (0.8-1.0); MONOCYTES % (AUTO) 8.8 % (1.7-9.3); NEUTROPHILS # (AUTO) 5.5 K/uL (1.8-7.7); NEUTROPHILS % (AUTO) 70.1 % (42.2-75.2); PLATELET COUNT (AUTO) 240 K/uL (140-450); RED BLOOD CELL COUNT(AUTO) 4.35 MIL/uL (4.20-6.10); RED CELL DISTRIBUTION WIDTH 16.2 % (11.6-13.7); WHITE BLOOD COUNT (AUTO) 7.8 K/uL (4.8-10.8)
[2021-03-29 07:17] LABS: ANION GAP 14.9 (8-16); CARBON DIOXIDE 22.3 mmol/L (21-32); CREATININE 0.6 mg/dL (0.6-1.3); POTASSIUM 3.2 mmol/L (3.5-5.1)
[2021-03-29 07:44] LABS: MAGNESIUM 1.9 mg/dL (1.8-2.4); PHOSPHORUS 3.2 mg/dL (2.5-4.9)
[2021-03-29 08:00] VITALS: BP 98/57
[2021-03-29] MEDS ORDERED: FAMOTIDINE 20 MG TAB PO SCH (09:00)
[2021-03-29] MEDS: PHENYTOIN 100 MG/4 ML UDC PO SCH ×3 (09:00→17:00)
[2021-03-29] MEDS ORDERED: ZINC SULFATE 220 MG PO SCH (09:00)
[2021-03-29] MEDS: POLYETHYLENE GLYCOL 17 GM/PKT PO SCH ×2 (09:00→20:44)
[2021-03-29] MEDS: [UNRECOGNIZED DRUG - OTHER] PO SCH ×2 (09:00→20:44)
[2021-03-29] MEDS: [UNRECOGNIZED DRUG - OTHER] PO SCH ×2 (09:00→20:44)
[2021-03-29] MEDS ORDERED: ASCORBIC ACID PO SCH (09:00)
[2021-03-29] MEDS ORDERED: ASCORBIC ACID 500 MG TAB PO SCH (09:00)
[2021-03-29] MEDS ORDERED: ZONISAMIDE PO SCH (09:00)
[2021-03-29] MEDS: rOPINIRole 0.25 MG TAB PO SCH ×2 (10:04→20:44)
[2021-03-29] MEDS: QUEtiapine FUMARATE 100 MG TAB PO SCH ×2 (10:05→20:44)
[2021-03-29] MEDS: PANTOPRAZOLE 40 MG TABEC PO SCH (10:05)
[2021-03-29] MEDS: DOCUSATE SODIUM 100 MG GELCAP PO SCH (10:06)
[2021-03-29] MEDS: ZINC SULF 220 MG CAP PO SCH (10:06)
[2021-03-29] MEDS: CALCIUM CARB/VIT-D 500 MG/200 IU 1 TAB PO SCH ×2 (10:06→20:44)
[2021-03-29] MEDS: LORATADINE 10 MG TAB PO SCH (10:06)
[2021-03-29] MEDS: levETIRAcetam 500 MG TAB PO SCH ×2 (10:08→20:43)
[2021-03-29 12:00] VITALS: BP 102/63
[2021-03-29 16:00] VITALS: BP 102/63
[2021-03-29 20:00] VITALS: BP 98/57
[2021-03-30] VITALS: BP 99/60
[2021-03-30 04:24] VITALS: BP 95/59
[2021-03-30] MEDS: PIPERACILLIN/TAZOBACTAM 3.375 GM in DEXTROSE 5% 50 ML IV SCH ×3 (05:51→21:00)
[2021-03-30 07:42] LABS: ANION GAP 14.8 (8-16); CREATININE 0.6 mg/dL (0.6-1.3); POTASSIUM 3.8 mmol/L (3.5-5.1)
[2021-03-30 07:44] LABS: BASOPHILS % (AUTO) 0.5 % (0.0-2.0); EOSINOPHILS # (AUTO) 0.4 K/uL (0-0.4); EOSINOPHILS % (AUTO) 6.7 % (0.0-4.0); HEMATOCRIT 31.5 % (36-52); HEMOGLOBIN 9.6 g/dL (12.0-18.0); LYMPHOCYTES # (AUTO) 1.3 K/uL (2.0-11.5); LYMPHOCYTES % (AUTO) 19.9 % (20.5-51.1); MEAN CORPUSCULAR HEMOGLOBIN 22 pg (27-31); MEAN CORPUSCULAR HGB CONC 30 g/dL (33-37); MEAN CORPUSCULAR VOLUME 73.6 fL (80-94); MONOCYTES # (AUTO) 0.6 K/uL (0.8-1.0); NEUTROPHILS # (AUTO) 4.2 K/uL (1.8-7.7); NEUTROPHILS % (AUTO) 63.9 % (42.2-75.2); PLATELET COUNT (AUTO) 260 K/uL (140-450); RED BLOOD CELL COUNT(AUTO) 4.28 MIL/uL (4.20-6.10); RED CELL DISTRIBUTION WIDTH 16.1 % (11.6-13.7); WHITE BLOOD COUNT (AUTO) 6.6 K/uL (4.8-10.8)
[2021-03-30 07:55] LABS: MAGNESIUM 1.8 mg/dL (1.8-2.4); PHOSPHORUS 3.4 mg/dL (2.5-4.9)
[2021-03-30 08:00] VITALS: BP 107/59
[2021-03-30] MEDS: rOPINIRole 0.25 MG TAB PO SCH ×2 (08:25→21:00)
[2021-03-30] MEDS: CALCIUM CARB/VIT-D 500 MG/200 IU 1 TAB PO SCH ×2 (08:25→21:00)
[2021-03-30] MEDS: levETIRAcetam 500 MG TAB PO SCH ×2 (08:26→21:00)
[2021-03-30] MEDS: DOCUSATE SODIUM 100 MG GELCAP PO SCH (08:26)
[2021-03-30] MEDS: POLYETHYLENE GLYCOL 17 GM/PKT PO SCH ×2 (08:27→21:00)
[2021-03-30] MEDS: PHENYTOIN 100 MG/4 ML UDC PO SCH ×3 (08:27→17:22)
[2021-03-30] MEDS: LORATADINE 10 MG TAB PO SCH (08:27)
[2021-03-30] MEDS: QUEtiapine FUMARATE 100 MG TAB PO SCH ×2 (08:27→21:00)
[2021-03-30] MEDS: ZINC SULF 220 MG CAP PO SCH (08:27)
[2021-03-30] MEDS: ASCORBIC ACID 500 MG/5 ML ORASYR GT SCH (08:28)
[2021-03-30] MEDS: FERROUS SULFATE 300 MG/5 ML UDC GT SCH ×2 (08:28→21:00)
[2021-03-30] MEDS: [UNRECOGNIZED DRUG - OTHER] PO SCH ×2 (08:41→21:00)
[2021-03-30] MEDS: [UNRECOGNIZED DRUG - OTHER] PO SCH ×2 (08:42→21:00)
[2021-03-30] MEDS ORDERED: CRUSHER, PILL MC ONE (08:55)
[2021-03-30] MEDS: PANTOPRAZOLE 40 MG TABEC PO SCH (09:00)
[2021-03-30] MEDS: NACL 0.9% 1,000 ML IV SCH (11:05)
[2021-03-30 12:00] VITALS: BP 112/68
[2021-03-30 16:00] VITALS: BP 98/61
[2021-03-30 18:14] LABS: T4 (THYROXINE) 3.6 ug/dL (4.5 - 12.0)
[2021-03-30 20:00] VITALS: BP 102/65
[2021-03-31 04:00] VITALS: BP 106/66
[2021-03-31] MEDS: PIPERACILLIN/TAZOBACTAM 3.375 GM in DEXTROSE 5% 50 ML IV SCH ×3 (05:00→22:58)
[2021-03-31] MEDS: NACL 0.9% 1,000 ML IV SCH ×2 (07:00→20:25)
[2021-03-31 07:07] LABS: BASOPHILS % (AUTO) 0.6 % (0.0-2.0); EOSINOPHILS # (AUTO) 0.4 K/uL (0-0.4); EOSINOPHILS % (AUTO) 4.9 % (0.0-4.0); HEMATOCRIT 32.5 % (36-52); HEMOGLOBIN 9.8 g/dL (12.0-18.0); LYMPHOCYTES # (AUTO) 1.8 K/uL (2.0-11.5); LYMPHOCYTES % (AUTO) 24.5 % (20.5-51.1); MEAN CORPUSCULAR HEMOGLOBIN 22 pg (27-31); MEAN CORPUSCULAR HGB CONC 30 g/dL (33-37); MEAN CORPUSCULAR VOLUME 73.7 fL (80-94); MONOCYTES # (AUTO) 0.6 K/uL (0.8-1.0); MONOCYTES % (AUTO) 8.8 % (1.7-9.3); NEUTROPHILS # (AUTO) 4.4 K/uL (1.8-7.7); NEUTROPHILS % (AUTO) 61.2 % (42.2-75.2); PLATELET COUNT (AUTO) 334 K/uL (140-450); RED BLOOD CELL COUNT(AUTO) 4.41 MIL/uL (4.20-6.10); RED CELL DISTRIBUTION WIDTH 16.4 % (11.6-13.7); WHITE BLOOD COUNT (AUTO) 7.2 K/uL (4.8-10.8)
[2021-03-31 07:23] LABS: MAGNESIUM 2.2 mg/dL (1.8-2.4); PHOSPHORUS 3.6 mg/dL (2.5-4.9)
[2021-03-31 07:24] LABS: ANION GAP 16.5 (8-16); CARBON DIOXIDE 22.1 mmol/L (21-32); CREATININE 0.7 mg/dL (0.6-1.3); POTASSIUM 3.6 mmol/L (3.5-5.1)
[2021-03-31 08:00] VITALS: BP 111/65
[2021-03-31] MEDS: PHENYTOIN 100 MG/4 ML UDC PO SCH ×3 (09:29→16:52)
[2021-03-31] MEDS: ASCORBIC ACID 500 MG/5 ML ORASYR GT SCH (09:29)
[2021-03-31] MEDS: DOCUSATE SODIUM 100 MG GELCAP PO SCH (09:31)
[2021-03-31] MEDS: CALCIUM CARB/VIT-D 500 MG/200 IU 1 TAB PO SCH ×2 (09:32→21:35)
[2021-03-31] MEDS: ZINC SULF 220 MG CAP PO SCH (09:32)
[2021-03-31] MEDS: levETIRAcetam 500 MG TAB PO SCH ×2 (09:33→21:33)
[2021-03-31] MEDS: LORATADINE 10 MG TAB PO SCH (09:33)
[2021-03-31] MEDS: rOPINIRole 0.25 MG TAB PO SCH ×2 (09:33→21:35)
[2021-03-31] MEDS: PANTOPRAZOLE 40 MG TABEC PO SCH (09:33)
[2021-03-31] MEDS: FERROUS SULFATE 300 MG/5 ML UDC GT SCH ×2 (09:34→21:33)
[2021-03-31] MEDS: POLYETHYLENE GLYCOL 17 GM/PKT PO SCH ×2 (09:34→21:34)
[2021-03-31] MEDS: QUEtiapine FUMARATE 100 MG TAB PO SCH ×2 (09:34→21:36)
[2021-03-31] MEDS: [UNRECOGNIZED DRUG - OTHER] PO SCH ×2 (09:45→21:35)
[2021-03-31] MEDS: [UNRECOGNIZED DRUG - OTHER] PO SCH ×2 (09:46→21:34)
[2021-03-31] MEDS: DOCUSATE 100 MG/10 ML UDC GT SCH (10:11)
[2021-03-31 12:00] VITALS: BP 124/70
[2021-03-31 16:00] VITALS: BP 116/72
[2021-03-31 20:00] VITALS: BP 100/61
[2021-04-01] VITALS: BP 105/65
[2021-04-01 04:00] VITALS: BP 111/70
[2021-04-01] MEDS: PIPERACILLIN/TAZOBACTAM 3.375 GM in DEXTROSE 5% 50 ML IV SCH ×2 (05:23→12:51)
[2021-04-01] MEDS: NACL 0.9% 1,000 ML IV SCH ×2 (05:48→13:00)
[2021-04-01 06:47] LABS: BASOPHILS % (AUTO) 0.7 % (0.0-2.0); EOSINOPHILS # (AUTO) 0.4 K/uL (0-0.4); EOSINOPHILS % (AUTO) 7.7 % (0.0-4.0); HEMATOCRIT 30.6 % (36-52); HEMOGLOBIN 9.3 g/dL (12.0-18.0); LYMPHOCYTES # (AUTO) 1.5 K/uL (2.0-11.5); LYMPHOCYTES % (AUTO) 28.4 % (20.5-51.1); MEAN CORPUSCULAR HEMOGLOBIN 22 pg (27-31); MEAN CORPUSCULAR HGB CONC 30 g/dL (33-37); MEAN CORPUSCULAR VOLUME 72.9 fL (80-94); MONOCYTES # (AUTO) 0.4 K/uL (0.8-1.0); MONOCYTES % (AUTO) 8.6 % (1.7-9.3); NEUTROPHILS # (AUTO) 2.8 K/uL (1.8-7.7); NEUTROPHILS % (AUTO) 54.6 % (42.2-75.2); PLATELET COUNT (AUTO) 280 K/uL (140-450); RED CELL DISTRIBUTION WIDTH 16.3 % (11.6-13.7); WHITE BLOOD COUNT (AUTO) 5.1 K/uL (4.8-10.8)
[2021-04-01 06:55] LABS: MAGNESIUM 2.2 mg/dL (1.8-2.4)
[2021-04-01 06:59] LABS: ANION GAP 14.9 (8-16); CARBON DIOXIDE 21.6 mmol/L (21-32); CREATININE 0.7 mg/dL (0.6-1.3); POTASSIUM 3.5 mmol/L (3.5-5.1)
[2021-04-01 08:00] VITALS: BP 102/62
[2021-04-01] MEDS ORDERED: PHEN50CT5 PO (08:06)
[2021-04-01 08:07] LABS: FERRITIN 73 ng/mL (30-400); TRANSFERRIN 190 mg/dL (177-329)
[2021-04-01] MEDS ORDERED: AMOX-999 PO (08:09)
[2021-04-01] MEDS ORDERED: POTA10TA70 PO (08:09)
[2021-04-01] MEDS ORDERED: LANSOPRAZOLE 30 MG CAPDR PO SCH (09:00)
[2021-04-01] MEDS: DOCUSATE 100 MG/10 ML UDC GT SCH (09:08)
[2021-04-01] MEDS: ASCORBIC ACID 500 MG/5 ML ORASYR GT SCH (09:09)
[2021-04-01] MEDS: PHENYTOIN 100 MG/4 ML UDC PO SCH ×2 (09:09→12:45)
[2021-04-01] MEDS: POLYETHYLENE GLYCOL 17 GM/PKT PO SCH (09:09)
[2021-04-01] MEDS: FERROUS SULFATE 300 MG/5 ML UDC GT SCH (09:09)
[2021-04-01] MEDS: levETIRAcetam 500 MG TAB PO SCH (09:10)
[2021-04-01] MEDS: ZINC SULF 220 MG CAP PO SCH (09:10)
[2021-04-01] MEDS: LORATADINE 10 MG TAB PO SCH (09:11)
[2021-04-01] MEDS: QUEtiapine FUMARATE 100 MG TAB PO SCH (09:11)
[2021-04-01] MEDS: CALCIUM CARB/VIT-D 500 MG/200 IU 1 TAB PO SCH (09:11)
[2021-04-01] MEDS: rOPINIRole 0.25 MG TAB PO SCH (09:11)
[2021-04-01] MEDS: [UNRECOGNIZED DRUG - OTHER] PO SCH (09:12)
[2021-04-01] MEDS: [UNRECOGNIZED DRUG - OTHER] PO SCH (09:12)
[2021-04-01] MEDS ORDERED: CRUSHER, PILL MC ONE (09:20)
[2021-04-01 12:00] VITALS: BP 99/53
[2021-04-01 16:31] VITALS: BP 110/62
== END 2021-04-01 16:50 | DRG 720 ==
LOC: MED 22:08 → MTU 03-28 02:10
DX: A41.9 Sepsis, unspecified organism (principal); J96.00 Acute respiratory failure, unspecified whether with hypoxia or hypercapnia; J69.0 Pneumonitis due to inhalation of food and vomit; G93.41 Metabolic encephalopathy; E43 Unspecified severe protein-calorie malnutrition; R13.11 Dysphagia, oral phase; E86.0 Dehydration; G40.909 Epilepsy, unspecified, not intractable, without status epilepticus; Z20.822 Contact with and (suspected) exposure to COVID-19; G80.9 Cerebral palsy, unspecified; R62.50 Unspecified lack of expected normal physiological development in childhood; K59.00 Constipation, unspecified; K21.9 Gastro-esophageal reflux disease without esophagitis; J30.9 Allergic rhinitis, unspecified; G47.00 Insomnia, unspecified; M40.294 Other kyphosis, thoracic region; G62.9 Polyneuropathy, unspecified; D63.8 Anemia in other chronic diseases classified elsewhere; E87.6 Hypokalemia; E87.1 Hypo-osmolality and hyponatremia; Z93.1 Gastrostomy status
CPT/HCPCS: 36415; 36600; 71045; 80048; 80053; 80184; 80299; 81001; 82140; 82150; 82550; 82553; 82728; 82803; 83036; 83540; 83605; 83690; 83735; 83880; 84100; 84134; 84436; 84443; 84484; 85025; 85045; 85610; 85730; 87040; 87081; 87086; 93005; 96365; 99291; J1644; J2543; J3480; J7060; Q0092; U0003

== ENCOUNTER 2021-05-06 10:39 | Emergency (ER) | payer MEDICAID, SELFPAY ==
[~2021-05-06] VITALS: Ht 172.7 cm; Wt 77.1 kg
[~2021-05-06 10:39] MED LIST changes: +AMOX-999 PO; +POTA10TA70 PO
--- NOTE | 2021-05-06 10:39 | NUR ---
PT PINEDA VIA GURNEY TO BED 12.
[2021-05-06 10:50] VITALS: BP 102/64
--- NOTE | 2021-05-06 10:50 | NUR ---
41 Y/O MALE PATIENT PRESENTS TO ED WITH G-TUBE PULLED OUT. PER EMS, PT PULLED OUT G-TUBE THIS MORNING; FACILITY TRIED TO REPLACE IT BUT "NO FLUIDS WOULD RUN THROUGH IT." PT BROUGHT TO ER FOR REPLACEMENT. DENIES N/V/D; SKIN IS PINK/WARM/DRY; AAOX0 GCS:9 (NFP),UNABLE TO AMBULATE; LUNGS CLEAR BL; HR EVEN AND REGULAR; PT DENIES ANY FEVER, CP, SOB, OR COUGH AT THIS TIME; PATIENT STATES PAIN OF 0/10 AT THIS TIME; VSS; PATIENT POSITIONED FOR COMFORT; HOB ELEVATED; BEDRAILS UP X2; BED DOWN. ER MD MADE AWARE OF PT STATUS. HX: SZR, INTELLECTUAL DISABILITY, KYPHOSCOLIOSIS, DEFORMITY OF SPINE, UNSPECIFIED CONVULSIONS, CONSTIPATION NKDA
--- NOTE | 2021-05-06 11:00 | NUR ---
DR. NAVARRETE AT PT BEDSIDE FOR GTUBE REPLACEMENT.
--- NOTE | 2021-05-06 11:04 | NUR ---
Joel miller in ED - 05/06/21 at 1410 by [email or web address] ER MD AT BEDSIDE; REPLACED G-TUBE
--- NOTE | 2021-05-06 11:22 | NUR ---
FACER OPERATOR AT PT BEDSIDE.
--- NOTE | 2021-05-06 12:12 | NUR ---
SPOKE WITH SUAD FROM [facility] 1430.
--- NOTE | 2021-05-06 12:53 | NUR ---
PT RESTING COMFORTABLY IN BED, RAILS UP X2, UNLABORED BREATHING WITH EQUAL CHEST RISE/FALL, VSS.
--- NOTE | 2021-05-06 13:42 | NUR ---
PT RESTING, VISIBLE EQUAL RISE AND FALL OF CHEST, VSS, WILL CONTINUE TO MONITOR.
--- NOTE | 2021-05-06 14:44 | NUR ---
SPOKE TO [employer] TECHNICIAN, VESTA, AND WAS NOTIFIED TO CANCEL TRANSPORT BECAUSE FACILITY HAS THEIR OWN. CALLED PT'S FACILITY TO VERIFY AND WAS NOTIFIED THAT FLEET MANAGER/DISPATCH MATT HAS ETA OF 10 INUTES. PREVIOUS TRANSPORT CANCELED.
--- NOTE | 2021-05-06 14:49 | NUR ---
CALLED [facility] TO GIVE REPORT, RN NOT AVAILABLE.
--- NOTE | 2021-05-06 14:58 | NUR ---
ATTEMPTED TO CONTACT BILL HINTON TO GIVE [id number] REPORT FOR RETURNING PATIENT AT
--- NOTE | 2021-05-06 15:04 | NUR ---
GAVE REPORT TO BILL HINTON
[2021-05-06 15:06] VITALS: BP 97/60
--- NOTE | 2021-05-06 15:06 | NUR ---
Patient discharged with v/s stable. Written and verbal after care instructions given and explained. CAREGIVER verbalized understanding. Wheel Chair Assisted with by caregiver. All questions addressed prior to discharge. Advised to follow up with PMD. VSS, PT HAS CALM DEMEANOR, BREATHING UNLABORED, BILATERAL CHEST RISE/FALL.
== END 2021-05-06 15:06 | disposition home or self-care (01) ==
LOC: MED 10:39
DX: K94.23 Gastrostomy malfunction (principal); Z79.899 Other long term (current) drug therapy; Z98.890 Other specified postprocedural states
CPT/HCPCS: 43762; 74240; 99285; Q0092; Q9967

== ENCOUNTER 2021-11-02 13:16 | Emergency (ER) | payer MEDICAID ==
[~2021-11-02] VITALS: Ht 167.6 cm; Wt 70.3 kg
[~2021-11-02 13:16] MED LIST changes: -AMOX-999 PO; -ZONI100C22 PO; +ZONI100C97 PO
[2021-11-02 13:25] VITALS: BP 132/68
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
--- NOTE | 2021-11-02 13:42 | NUR ---
X-RAY AT BEDSIDE.
--- NOTE | 2021-11-02 14:05 | NUR ---
DR BANKS AT BEDSIDE.
--- NOTE | 2021-11-02 15:08 | NUR ---
CALLED THE PT FACILITY TO MAKE SURE WE ADRESSED ALL THEIR CONCERNS PER DR BANKS. SPOKE WITH [facility] AND PER YSABEL THEY WILL ARRANGE A TRANSPORTATION FOR THE PT TO BE TRANSFERRED BACK.
--- NOTE | 2021-11-02 15:18 | NUR ---
pt placed in left ortho knee immobilizer. cms wnl before and after.
--- NOTE | 2021-11-02 15:20 | NUR ---
Chart checked and completed. The patient's care was reviewed and supervised by Samantha Hoyt, RN, RN.
[2021-11-02 15:57] VITALS: BP 92/47
--- NOTE | 2021-11-02 15:59 | NUR ---
Patient discharged with v/s stable. Written and verbal after care instructions given and explained. Patient verbalized understanding. Ambulance Transport with to [facility]. All questions addressed prior to discharge. Advised to follow up with PMD.
== END 2021-11-02 15:59 | disposition home or self-care (01) ==
LOC: MED 13:16
DX: S89.92XA Unspecified injury of left lower leg, initial encounter (principal); G40.909 Epilepsy, unspecified, not intractable, without status epilepticus; F73 Profound intellectual disabilities; W17.89XA Other fall from one level to another, initial encounter; Y93.89 Activity, other specified; Y92.89 Other specified places as the place of occurrence of the external cause; Y99.8 Other external cause status
CPT/HCPCS: 29505; 73562; 99283; Q0092

== ENCOUNTER 2022-01-15 16:41 | Emergency (ER) | payer MEDICAID ==
[~2022-01-15] VITALS: Ht 152.4 cm; Wt 65.8 kg
[2022-01-15 16:46] VITALS: BP 101/67
--- NOTE | 2022-01-15 17:08 | NUR ---
PT IN ROOM 2. SZ PADS ON SIDE RAILS
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
--- NOTE | 2022-01-15 18:19 | NUR ---
PT TO CT
--- NOTE | 2022-01-15 19:02 | NUR ---
PT IS DC . PENDING ETA ON TRANSPORTION.
--- NOTE | 2022-01-15 21:30 | NUR ---
[facility] ARRIVED FOR TRANSPORT
[2022-01-15 21:36] VITALS: BP 115/76
--- NOTE | 2022-01-15 21:36 | NUR ---
Patient discharged. Written and verbal after care instructions given and explained. Patient verbalized understanding. [facility] ID band removed. All questions addressed prior to discharge. Advised to follow up with PMD.
--- NOTE | 2022-01-15 21:36 | NUR ---
PATIENT TX BY [facility]
== END 2022-01-15 19:07 | disposition home or self-care (01) ==
LOC: MED 16:41
DX: S09.90XA Unspecified injury of head, initial encounter (principal); F73 Profound intellectual disabilities; Z79.899 Other long term (current) drug therapy; X58.XXXA Exposure to other specified factors, initial encounter; Y93.89 Activity, other specified; Y92.89 Other specified places as the place of occurrence of the external cause; Y99.8 Other external cause status
CPT/HCPCS: 70450; 99284